=== PATIENT | female | born 1970 | race African-American/Black ===

== ENCOUNTER 2016-09-13 11:14 | Emergency (ER) | payer OTHER ==
[~2016-09-13] VITALS: Ht 157.5 cm; Wt 127.0 kg
[~2016-09-13 11:14] MED LIST: ALBMDI INH; ALBU2.5V7 INH; ASPI-862 PO; ATEN-41 PO; FLUO10CA65 PO; HYDR25TA4 PO; LISI10TA5 PO; PRED5TAB PO; PRO40 PO; WELSR100 PO
[2016-09-13 11:18] VITALS: BP 158/105; PULSE 103; RESP 24; TEMP 97.7; O2SAT 100
[2016-09-13] MEDS ORDERED: ONDANSETRON HCL 4 MG/2 ML VIAL IVP ONE (11:30)
[2016-09-13] MEDS ORDERED: KETOROLAC TROMETHAMINE 30 MG VIAL IVP ONE (11:30)
[2016-09-13] MEDS ORDERED: ASPIRIN 81 MG TAB.CHEW PO ONE (11:30)
[2016-09-13] MEDS ORDERED: MAG HYDROX/AL HYDROX/SIMETH 30 ML, BELLADONNA ALKALOIDS/PHENOBARB 10 ML, LIDOCAINE VISC... PO ONE ×3 (11:30)
[2016-09-13] MEDS ORDERED: ONDANSETRON HCL 4 MG/2 ML VIAL ONE (11:41)
[2016-09-13 11:47] LABS: BASOPHILS # (AUTO) 0.2 K/uL (0.0-0.2); BASOPHILS % (AUTO) 2.2 % (0.0-2.0); EOSINOPHILS % (AUTO) 0.5 % (0.0-4.0); HEMATOCRIT 30.8 % (36-48); HEMOGLOBIN 9.7 g/dL (12.0-16.0); LYMPHOCYTES % (AUTO) 23.5 % (20.5-51.5); MEAN CORPUSCULAR HEMOGLOBIN 21 pg (27-31); MEAN CORPUSCULAR HGB CONC 32 % (32-36); MEAN CORPUSCULAR VOLUME 68 fL (79.0-98.0); MONOCYTES # (AUTO) 0.4 K/uL (0.0-1.0); MONOCYTES % (AUTO) 5.1 % (1.7-9.3); NEUTROPHILS # (AUTO) 5.8 K/uL (1.8-7.7); NEUTROPHILS % (AUTO) 68.7 % (40.0-70.0); PLATELET COUNT (AUTO) 354 K/uL (130-430); RED BLOOD CELL COUNT(AUTO) 4.55 MIL/uL (4.2-6.2); RED CELL DISTRIBUTION WIDTH 19.5 % (9.0-15.0); WHITE BLOOD COUNT (AUTO) 8.4 K/uL (4.8-10.8)
[2016-09-13 11:57] LABS: CALCIUM 9.5 mg/dL (8.4-11.0); CREATININE 0.95 mg/dL (0.55-1.30); POTASSIUM 3.6 mmol/L (3.5-5.1)
[2016-09-13 12:00] LABS: PROTHROMBIN TIME 10.4 SECS (9.5-12.5)
[2016-09-13 12:01] LABS: ALBUMIN 3.4 g/dL (3.4-4.8); TOTAL BILIRUBIN 0.2 mg/dL (0.0-1.0); TOTAL PROTEIN, SERUM 8.5 g/dL (6.4-8.3)
[2016-09-13] MEDS ORDERED: MULT-1117 PO (14:06)
[2016-09-13] MEDS ORDERED: FERR-57 PO (14:06)
[2016-09-13] MEDS ORDERED: FURO-150 PO (14:06)
[2016-09-13] MEDS ORDERED: VALS80TA2 PO (14:06)
[2016-09-13] MEDS ORDERED: CHOL500052 PO (14:06)
[2016-09-13] MEDS ORDERED: BUPR-120 PO (14:06)
[2016-09-13] MEDS ORDERED: AMLO5TAB4 PO (14:06)
[2016-09-13] MEDS ORDERED: OMEG100T PO (14:06)
[2016-09-13] MEDS ORDERED: DEXA (14:06)
[2016-09-13] MEDS ORDERED: COG1 PO (14:06)
[2016-09-13] MEDS ORDERED: LURA60TA PO (14:06)
[2016-09-13 17:37] VITALS: BP 142/98; PULSE 100; RESP 24; TEMP 97.7; O2SAT 100
[2016-09-13 17:40] LABS: BILIRUBIN,URINE NEGATIVE (NEGATIVE); BLOOD, URINE NEGATIVE (NEGATIVE); CLARITY/URINE CLEAR (CLEAR); GLUCOSE,URINE NEGATIVE (NEGATIVE); KETONES,URINE NEGATIVE (NEGATIVE); LEUKOCYTE ESTERASE ,URINE NEGATIVE (NEGATIVE); NITRITE, URINE NEGATIVE (NEGATIVE); PROTEIN URINE NEGATIVE (NEGATIVE); UROBILINOGEN,URINE 0.2 (0.2-1.0)
[2016-09-13 17:42] LABS: COLOR,URINE STRAW (YELLOW)
== END 2016-09-13 17:37 | disposition left against medical advice (07) ==
LOC: SED 11:14
DX: K44.9 Diaphragmatic hernia without obstruction or gangrene (principal); K21.9 Gastro-esophageal reflux disease without esophagitis; R07.9 Chest pain, unspecified; J45.909 Unspecified asthma, uncomplicated; I10 Essential (primary) hypertension; E78.5 Hyperlipidemia, unspecified; Z88.0 Allergy status to penicillin; Z88.1 Allergy status to other antibiotic agents
CPT/HCPCS: 36415; 71010; 74176; 80053; 80061; 81003; 81025; 83690; 84484; 85025; 85610; 85730; 93005; 96374; 96375; 99285; J1885; J2001; J2405

== ENCOUNTER 2016-09-15 07:43 | Emergency (ER) | payer OTHER ==
[~2016-09-15] VITALS: Ht 157.5 cm; Wt 127.0 kg
[~2016-09-15 07:43] MED LIST changes: +AMLO5TAB4 PO; +BUPR-120 PO; +CHOL500052 PO; +COG1 PO; +DEXA; +FERR-57 PO; +FURO-150 PO; +LURA60TA PO; +MULT-1117 PO; +OMEG100T PO; +VALS80TA2 PO
[2016-09-15 07:50] VITALS: BP 163/113; PULSE 84; RESP 16; TEMP 97.5; O2SAT 100
--- NOTE | 2016-09-15 07:55 | NUR ---
Patient to ER bed 4 to gown for evaluation. Side rails up. Report given to Lebron DIAZ.
--- NOTE | 2016-09-15 08:00 | NUR ---
Pt presents to ED c/o mucus.Pt has no acute resp distress noted. Pt AAOx4, ambulated to room steady gait. Pt h/o HTN,GERD.
--- NOTE | 2016-09-15 08:10 | NUR ---
Patient transported to radiology via ambulation, accompanied by rad staff.
--- NOTE | 2016-09-15 08:15 | NUR ---
Pt returned from rad dept.Pt tolerated well.
--- NOTE | 2016-09-15 08:40 | NUR ---
at bedside for discussion of ACI
[2016-09-15 08:45] VITALS: BP 158/92; PULSE 86; RESP 16; TEMP 97.5; O2SAT 100
--- NOTE | 2016-09-15 08:45 | NUR ---
Patient given written and verbal discharge instructions and verbalizes understanding. ER MD discussed with patient the results and treatment provided. Given copies of tests performed in ER. Patient in stable condition. ID arm band removed. Rx of azithromycin,sudafed given. Patient educated on pain management and to follow up with PMD. Pain Scale 0. Opportunity for questions provided and answered.
== END 2016-09-15 08:45 | disposition home or self-care (01) ==
LOC: SED 07:43
DX: J20.9 Acute bronchitis, unspecified (principal); J45.909 Unspecified asthma, uncomplicated; K21.9 Gastro-esophageal reflux disease without esophagitis; I10 Essential (primary) hypertension; E66.9 Obesity, unspecified; E78.5 Hyperlipidemia, unspecified; Z88.0 Allergy status to penicillin; Z88.1 Allergy status to other antibiotic agents
CPT/HCPCS: 71020-TC; 99284

== ENCOUNTER 2016-09-28 12:26 | Emergency (ER) | payer OTHER ==
[~2016-09-28] VITALS: Ht 157.5 cm; Wt 129.7 kg
[2016-09-28 12:31] VITALS: BP 122/68; PULSE 62; RESP 20; TEMP 98.2; O2SAT 98
[2016-09-28] MEDS ORDERED: ASPIRIN 81 MG TAB.CHEW PO ONE (12:45)
[2016-09-28] MEDS ORDERED: KETOROLAC TROMETHAMINE 30 MG VIAL IVP ONE (12:45)
[2016-09-28] MEDS ORDERED: PROCHLORPERAZINE EDISYLATE 10 MG/2 ML VIAL IVP ONE (12:45)
[2016-09-28 13:12] LABS: BASOPHILS % (AUTO) 0.5 % (0.0-2.0); EOSINOPHILS # (AUTO) 0.1 K/uL (0.0-0.4); EOSINOPHILS % (AUTO) 1.5 % (0.0-4.0); HEMATOCRIT 32.1 % (36-48); HEMOGLOBIN 9.9 g/dL (12.0-16.0); LYMPHOCYTES # (AUTO) 2.2 K/uL (1.0-5.5); LYMPHOCYTES % (AUTO) 30.3 % (20.5-51.5); MEAN CORPUSCULAR HEMOGLOBIN 21 pg (27-31); MEAN CORPUSCULAR HGB CONC 31 % (32-36); MEAN CORPUSCULAR VOLUME 69 fL (79.0-98.0); MONOCYTES # (AUTO) 0.7 K/uL (0.0-1.0); NEUTROPHILS # (AUTO) 4.4 K/uL (1.8-7.7); NEUTROPHILS % (AUTO) 58.7 % (40.0-70.0); PLATELET COUNT (AUTO) 401 K/uL (130-430); RED BLOOD CELL COUNT(AUTO) 4.64 MIL/uL (4.2-6.2); RED CELL DISTRIBUTION WIDTH 18.7 % (9.0-15.0); WHITE BLOOD COUNT (AUTO) 7.4 K/uL (4.8-10.8)
[2016-09-28 13:16] LABS: CALCIUM 9.3 mg/dL (8.4-11.0); CREATININE 1.07 mg/dL (0.55-1.30); POTASSIUM 3.8 mmol/L (3.5-5.1)
[2016-09-28 13:20] LABS: PROTHROMBIN TIME 10.8 SECS (9.5-12.5)
[2016-09-28 13:27] LABS: ALBUMIN 3.2 g/dL (3.4-4.8); TOTAL BILIRUBIN 0.3 mg/dL (0.0-1.0); TOTAL PROTEIN, SERUM 8.1 g/dL (6.4-8.3)
[2016-09-28] MEDS ORDERED: NACL 0.9% 1,000 ML IV ONE (13:30)
[2016-09-28 15:38] LABS: BILIRUBIN,URINE NEGATIVE (NEGATIVE); BLOOD, URINE NEGATIVE (NEGATIVE); CLARITY/URINE CLEAR (CLEAR); COLOR,URINE YELLOW (YELLOW); GLUCOSE,URINE NEGATIVE (NEGATIVE); KETONES,URINE NEGATIVE (NEGATIVE); LEUKOCYTE ESTERASE ,URINE NEGATIVE (NEGATIVE); NITRITE, URINE NEGATIVE (NEGATIVE); PH,URINE 5.5 (5.0-8.0); PROTEIN URINE NEGATIVE (NEGATIVE); UROBILINOGEN,URINE 0.2 (0.2-1.0)
[2016-09-28 16:30] VITALS: BP 139/77; PULSE 88; RESP 14; TEMP 98.2; O2SAT 99
== END 2016-09-28 16:29 | disposition home or self-care (01) ==
LOC: SED 12:26
DX: E86.0 Dehydration (principal); D64.9 Anemia, unspecified; J45.909 Unspecified asthma, uncomplicated; K21.9 Gastro-esophageal reflux disease without esophagitis; I10 Essential (primary) hypertension; E78.5 Hyperlipidemia, unspecified; Z88.0 Allergy status to penicillin; Z88.1 Allergy status to other antibiotic agents
CPT/HCPCS: 36415; 71010; 80053; 81003; 82550; 84484; 85025; 85610; 85730; 93005; 96361; 96374; 99285; J0780; J7030; J1885

== ENCOUNTER 2016-11-24 19:45 | Emergency (ER) | payer OTHER ==
[~2016-11-24] VITALS: Ht 157.5 cm; Wt 127.0 kg
[2016-11-24 19:45] VITALS: BP 190/102; PULSE 85; RESP 20; TEMP 97.5; O2SAT 100
--- NOTE | 2016-11-24 20:22 | NUR ---
Patient to ER bed 1 to gown for evaluation. Side rails up. Report given to EMILY Hou.
--- NOTE | 2016-11-24 20:24 | NUR ---
Pt brought by self, A&Ox4, pt c/o sore throat and SOB x 2 days s/p endoscopy, skin pink and warm, cap refill <3, VSS, O2 100% room air, pt states unable to take medications due to dysphagia, respirations even and unlabored.
--- NOTE | 2016-11-24 21:14 | NUR ---
Dr Gastelum at bedside examining patient
[2016-11-24] MEDS ORDERED: MAG HYDROX/AL HYDROX/SIMETH 30 ML, BELLADONNA ALKALOIDS/PHENOBARB 10 ML, LIDOCAINE VISC... PO ONE ×3 (21:30)
[2016-11-24] MEDS ORDERED: KETOROLAC TROMETHAMINE 60 MG/2 ML VIAL IM ONE (21:30)
--- NOTE | 2016-11-24 21:45 | NUR ---
Pt on stable condition, denies SOB at this time, 02 100%
[2016-11-24 21:52] VITALS: BP 166/98; PULSE 85; RESP 20; TEMP 97.5; O2SAT 100
--- NOTE | 2016-11-24 21:55 | NUR ---
Patient given written and verbal discharge instructions and verbalizes understanding. ER MD discussed with patient the results and treatment provided. Patient in stable condition. ID arm band removed. Rx of Prednisone and Motrin given. Patient educated on pain management and to follow up with PMD. Pain Scale 0/10 . Opportunity for questions provided and answered.
== END 2016-11-24 21:52 | disposition home or self-care (01) ==
LOC: SED 19:45
DX: J02.9 Acute pharyngitis, unspecified (principal); J45.909 Unspecified asthma, uncomplicated; K21.9 Gastro-esophageal reflux disease without esophagitis; I10 Essential (primary) hypertension; E78.5 Hyperlipidemia, unspecified; Z88.1 Allergy status to other antibiotic agents; Z88.0 Allergy status to penicillin
CPT/HCPCS: 71010; 81025; 96372; 99283; J1885; J2001

== ENCOUNTER 2017-02-16 14:47 | Emergency (ER) | payer OTHER ==
[~2017-02-16] VITALS: Ht 160 cm; Wt 127.0 kg
[2017-02-16 14:47] VITALS: BP_SYST 147
[~2017-02-16 14:47] MED LIST changes: -ALBU2.5V7 INH; -ASPI-862 PO; -ATEN-41 PO; -FLUO10CA65 PO; -HYDR25TA4 PO; -LISI10TA5 PO; -PRED5TAB PO; -PRO40 PO; -WELSR100 PO
[2017-02-16] MEDS ORDERED: KETOROLAC TROMETHAMINE 60 MG/2 ML VIAL IM ONE (15:00)
[2017-02-16] MEDS ORDERED: ACETAMINOPHEN 325 MG TABLET PO ONE (15:00)
[2017-02-16 16:45] LABS: EOSINOPHILS # (AUTO) 0.1 K/uL (0.0-0.4); HEMOGLOBIN 10.7 g/dL (12.0-16.0); MEAN CORPUSCULAR HEMOGLOBIN 22 pg (27-31)
[2017-02-16 16:49] LABS: BASOPHILS % (AUTO) 0.5 % (0.0-2.0); EOSINOPHILS % (AUTO) 0.7 % (0.0-4.0); LYMPHOCYTES # (AUTO) 1.6 K/uL (1.0-5.5); LYMPHOCYTES % (AUTO) 17.4 % (20.5-51.5); MEAN CORPUSCULAR HGB CONC 31 % (32-36); MEAN CORPUSCULAR VOLUME 73 fL (79.0-98.0); MONOCYTES # (AUTO) 0.5 K/uL (0.0-1.0); MONOCYTES % (AUTO) 5.5 % (1.7-9.3); NEUTROPHILS % (AUTO) 75.9 % (40.0-70.0); PLATELET COUNT (AUTO) 437 K/uL (130-430); RED BLOOD CELL COUNT(AUTO) 4.82 MIL/uL (4.2-6.2); WHITE BLOOD COUNT (AUTO) 9.2 K/uL (4.8-10.8)
[2017-02-16 17:00] LABS: PROTHROMBIN TIME 10.4 SECS (9.5-12.5)
[2017-02-16 17:01] LABS: CALCIUM 9.2 mg/dL (8.4-11.0); CREATININE 0.95 mg/dL (0.55-1.30); POTASSIUM 4.4 mmol/L (3.5-5.1)
[2017-02-16 17:06] LABS: ALBUMIN 3.4 g/dL (3.4-4.8); TOTAL BILIRUBIN 0.2 mg/dL (0.0-1.0); TOTAL PROTEIN, SERUM 8.1 g/dL (6.4-8.3)
[2017-02-16 18:20] VITALS: BP_SYST 142
== END 2017-02-16 18:20 | disposition home or self-care (01) ==
LOC: SED 14:47
DX: M25.562 Pain in left knee (principal); M54.9 Dorsalgia, unspecified; R10.2 Pelvic and perineal pain; J45.909 Unspecified asthma, uncomplicated; R51 Headache; K21.9 Gastro-esophageal reflux disease without esophagitis; I10 Essential (primary) hypertension; E78.5 Hyperlipidemia, unspecified; Z88.0 Allergy status to penicillin; Z88.1 Allergy status to other antibiotic agents; Z79.899 Other long term (current) drug therapy
CPT/HCPCS: 29505; 36415; 70450; 71250; 72125; 72128; 72131; 73564; 74176; 80053; 81025; 85025; 85610; 85730; 96372; 99285; J1885

== ENCOUNTER 2017-05-25 09:07 | Emergency (ER) | payer OTHER ==
[~2017-05-25] VITALS: Ht 157.5 cm; Wt 123.4 kg
[2017-05-25 09:14] VITALS: BP_SYST 155
[2017-05-25 09:35] VITALS: BP_SYST 162
== END 2017-05-25 09:35 | disposition home or self-care (01) ==
LOC: SED 09:07
DX: T16.2XXA Foreign body in left ear, initial encounter (principal); I10 Essential (primary) hypertension; J45.909 Unspecified asthma, uncomplicated; K21.9 Gastro-esophageal reflux disease without esophagitis; E78.5 Hyperlipidemia, unspecified; Z88.0 Allergy status to penicillin; Z88.1 Allergy status to other antibiotic agents; Z79.899 Other long term (current) drug therapy; X58.XXXA Exposure to other specified factors, initial encounter; Y93.89 Activity, other specified; Y92.89 Other specified places as the place of occurrence of the external cause; Y99.8 Other external cause status
CPT/HCPCS: 99284

== ENCOUNTER 2017-06-22 00:42 | Emergency (ER) | payer OTHER ==
[~2017-06-22] VITALS: Ht 157.5 cm; Wt 123.4 kg
[2017-06-22] MEDS ORDERED: ONDANSETRON 4 MG ODT TAB PO ONE (00:45)
[2017-06-22 00:50] VITALS: BP_SYST 172
[2017-06-22 01:14] LABS: BILIRUBIN,URINE NEGATIVE (NEGATIVE); BLOOD, URINE 2+ (NEGATIVE); CLARITY/URINE CLEAR (CLEAR); COLOR,URINE YELLOW (YELLOW); GLUCOSE,URINE NEGATIVE (NEGATIVE); KETONES,URINE NEGATIVE (NEGATIVE); LEUKOCYTE ESTERASE ,URINE TRACE (NEGATIVE); NITRITE, URINE NEGATIVE (NEGATIVE); PROTEIN URINE NEGATIVE (NEGATIVE); UROBILINOGEN,URINE 0.2 (0.2-1.0)
[2017-06-22 01:28] LABS: BASOPHILS # (AUTO) 0.1 K/uL (0.0-0.2); BASOPHILS % (AUTO) 1.7 % (0.0-2.0); EOSINOPHILS # (AUTO) 0.1 K/uL (0.0-0.4); EOSINOPHILS % (AUTO) 1.5 % (0.0-4.0); HEMATOCRIT 31.6 % (36-48); HEMOGLOBIN 9.5 g/dL (12.0-16.0); LYMPHOCYTES # (AUTO) 1.9 K/uL (1.0-5.5); LYMPHOCYTES % (AUTO) 24.9 % (20.5-51.5); MEAN CORPUSCULAR HEMOGLOBIN 20 pg (27-31); MEAN CORPUSCULAR HGB CONC 30 % (32-36); MEAN CORPUSCULAR VOLUME 68 fL (79.0-98.0); MONOCYTES # (AUTO) 0.5 K/uL (0.0-1.0); MONOCYTES % (AUTO) 6.5 % (1.7-9.3); NEUTROPHILS # (AUTO) 4.9 K/uL (1.8-7.7); NEUTROPHILS % (AUTO) 65.4 % (40.0-70.0); PLATELET COUNT (AUTO) 452 K/uL (130-430); RED BLOOD CELL COUNT(AUTO) 4.65 MIL/uL (4.2-6.2); RED CELL DISTRIBUTION WIDTH 24.2 % (9.0-15.0); WHITE BLOOD COUNT (AUTO) 7.5 K/uL (4.8-10.8)
[2017-06-22] MEDS ORDERED: KETOROLAC TROMETHAMINE 30 MG VIAL IM ONE (01:30)
[2017-06-22 01:32] LABS: BACTERIA,URINE MODERATE /HPF (None Seen); MUCUS,URINE None Seen /LPF (None Seen); RBC,URINE 0-3 /HPF (0-3)
[2017-06-22 01:37] LABS: CALCIUM 8.7 mg/dL (8.4-11.0); CREATININE 0.84 mg/dL (0.55-1.30); POTASSIUM 3.9 mmol/L (3.5-5.1)
[2017-06-22 01:43] LABS: ALBUMIN 3.2 g/dL (3.4-4.8); TOTAL BILIRUBIN 0.3 mg/dL (0.0-1.0)
[2017-06-22 02:01] VITALS: BP_SYST 138
== END 2017-06-22 02:01 | disposition home or self-care (01) ==
LOC: SED 00:42
DX: K80.20 Calculus of gallbladder without cholecystitis without obstruction (principal); K21.9 Gastro-esophageal reflux disease without esophagitis; I10 Essential (primary) hypertension; J45.909 Unspecified asthma, uncomplicated; E78.5 Hyperlipidemia, unspecified; Z88.0 Allergy status to penicillin; Z88.1 Allergy status to other antibiotic agents; Z79.899 Other long term (current) drug therapy
CPT/HCPCS: 36415; 74176; 80053; 81000; 81025; 83690; 85025; 87086; 96372; 99285; J1885; Q0162

== ENCOUNTER 2017-09-01 17:18 | Emergency (ER) | payer OTHER ==
[~2017-09-01] VITALS: Ht 160 cm; Wt 120.7 kg
[2017-09-01 17:26] VITALS: BP_SYST 125
[2017-09-01 18:36] LABS: HEMATOCRIT 36.5 % (36-48); HEMOGLOBIN 11.2 g/dL (12.0-16.0); MEAN CORPUSCULAR HEMOGLOBIN 22 pg (27-31); MEAN CORPUSCULAR HGB CONC 31 % (32-36); MEAN CORPUSCULAR VOLUME 72 fL (79.0-98.0); PLATELET COUNT (AUTO) 472 K/uL (130-430); RED BLOOD CELL COUNT(AUTO) 5.07 MIL/uL (4.2-6.2); RED CELL DISTRIBUTION WIDTH 20.1 % (9.0-15.0)
[2017-09-01 18:54] LABS: ANION GAP 6 (5-15); CALCIUM 10.1 mg/dL (8.4-11.0); CHLORIDE 103 mmol/L (98-107); CREATININE 0.84 mg/dL (0.55-1.30); GLUCOSE 143 mg/dL (70-99); POTASSIUM 4.2 mmol/L (3.5-5.1); SODIUM SERUM 135 mmol/L (136-145); UREA NITROGEN, BLOOD 13 mg/dL (8-21)
[2017-09-01 18:55] LABS: GFR AFRICAN AMERICAN 94 mL/min (>90)
[2017-09-01 18:59] LABS: ALANINE AMINOTRANSFERASE 21 U/L (12-78); ALBUMIN 3.6 g/dL (3.4-4.8); ALCOHOL, BLOOD 4 mg/dL (<10); ASPARTATE AMINOTRANSFERASE 15 U/L (10-37); TOTAL BILIRUBIN 0.3 mg/dL (0.0-1.0)
[2017-09-01 19:02] LABS: ACETAMINOPHEN < 1 ug/mL (1-30)
[2017-09-01 19:21] LABS: BASOPHILS % (MANUAL) 0 % (0-2); EOSINOPHILS % (MANUAL) 1 % (0-7); LYMPHOCYTES % (MANUAL) 26 % (20-46); MONOCYTES % (MANUAL) 5 % (0-11)
[2017-09-01] MEDS ORDERED: LORazepam 1 MG TABLET PO ONE (20:15)
[2017-09-01 23:20] VITALS: BP_SYST 156
== END 2017-09-01 23:20 | disposition home or self-care (01) ==
LOC: SED 17:18
DX: F41.9 Anxiety disorder, unspecified (principal); J45.909 Unspecified asthma, uncomplicated; K21.9 Gastro-esophageal reflux disease without esophagitis; I10 Essential (primary) hypertension; E78.5 Hyperlipidemia, unspecified; F20.9 Schizophrenia, unspecified; Z88.0 Allergy status to penicillin; Z79.899 Other long term (current) drug therapy
CPT/HCPCS: 36415; 80053; 85007; 85027; 93005; 99285; G0480; G0481; G0482

== ENCOUNTER 2017-09-24 18:25 | Emergency (ER) | payer OTHER ==
[~2017-09-24] VITALS: Ht 160 cm; Wt 122.5 kg
[2017-09-24 18:38] VITALS: BP_SYST 158
[2017-09-24] MEDS ORDERED: QUEtiapine FUMARATE 25 MG TABLET PO ONE (19:15)
[2017-09-24 19:20] VITALS: BP_SYST 149
== END 2017-09-24 19:20 | disposition home or self-care (01) ==
LOC: SED 18:25
DX: F25.9 Schizoaffective disorder, unspecified (principal); I10 Essential (primary) hypertension; J45.909 Unspecified asthma, uncomplicated; K21.9 Gastro-esophageal reflux disease without esophagitis; E78.5 Hyperlipidemia, unspecified; Z88.0 Allergy status to penicillin; Z88.1 Allergy status to other antibiotic agents; Z79.899 Other long term (current) drug therapy
CPT/HCPCS: 99283

== ENCOUNTER 2017-10-13 15:51 | Emergency (ER) | payer OTHER ==
[~2017-10-13] VITALS: Ht 157.5 cm; Wt 119.7 kg
[2017-10-13 15:56] VITALS: BP_SYST 189
[2017-10-13] MEDS ORDERED: FAMOTIDINE 20 MG TABLET PO ONE (18:30)
[2017-10-13 20:41] VITALS: BP_SYST 142
== END 2017-10-13 20:41 | disposition home or self-care (01) ==
LOC: SED 15:51
DX: R13.10 Dysphagia, unspecified (principal); R05 Cough; M25.552 Pain in left hip; K21.9 Gastro-esophageal reflux disease without esophagitis; I10 Essential (primary) hypertension; J45.909 Unspecified asthma, uncomplicated; E78.5 Hyperlipidemia, unspecified; F20.9 Schizophrenia, unspecified; Z88.0 Allergy status to penicillin; Z88.1 Allergy status to other antibiotic agents; Z79.899 Other long term (current) drug therapy
CPT/HCPCS: 70360-TC; 99284

== ENCOUNTER 2018-02-16 07:54 | Emergency (ER) | payer OTHER ==
[~2018-02-16] VITALS: Ht 157.5 cm; Wt 117.9 kg
[2018-02-16 07:58] VITALS: BP_SYST 142
[2018-02-16] MEDS ORDERED: NACL 0.9% 1,000 ML IV ONE (08:29)
[2018-02-16] MEDS ORDERED: NITROGLYCERIN 1 INCH (GM) OINT. TP ONE (08:30)
[2018-02-16] MEDS ORDERED: ASPIRIN 81 MG TAB.CHEW PO ONE (08:30)
[2018-02-16] MEDS ORDERED: KETOROLAC TROMETHAMINE 15 MG VIAL IVP ONE (08:30)
[2018-02-16 08:35] LABS: HEMATOCRIT 38.1 % (36-48); MEAN CORPUSCULAR HEMOGLOBIN 24 pg (27-31); MEAN CORPUSCULAR HGB CONC 31 % (32-36); MEAN CORPUSCULAR VOLUME 76 fL (79.0-98.0); PLATELET COUNT (AUTO) 375 K/uL (130-430); RED BLOOD CELL COUNT(AUTO) 4.99 MIL/uL (4.2-6.2); RED CELL DISTRIBUTION WIDTH 19.9 % (9.0-15.0); WHITE BLOOD COUNT (AUTO) 6.8 K/uL (4.8-10.8)
[2018-02-16 08:41] LABS: HEMOGLOBIN 11.9 g/dL (12.0-16.0)
[2018-02-16 09:01] LABS: ATYPICAL LYMPHOCYTES % 0 % (0-0); BAND % (MANUAL) 0 % (0-6); BASOPHILS % (MANUAL) 2 % (0-2); EOSINOPHILS % (MANUAL) 6 % (0-7); LYMPHOCYTES % (MANUAL) 20 % (20-46); MONOCYTES % (MANUAL) 6 % (0-11)
[2018-02-16 09:26] LABS: ANION GAP 5 (5-15); CALCIUM 8.4 mg/dL (8.4-11.0); CHLORIDE 104 mmol/L (98-107); CREATININE 1.13 mg/dL (0.55-1.30); GLUCOSE 152 mg/dL (70-99); POTASSIUM 4.2 mmol/L (3.5-5.1); SODIUM SERUM 139 mmol/L (136-145); UREA NITROGEN, BLOOD 13 mg/dL (8-21)
[2018-02-16 09:30] LABS: INR 1.1 (0.8-1.2)
[2018-02-16 09:32] LABS: GFR AFRICAN AMERICAN 66 mL/min (>90)
[2018-02-16 09:35] LABS: ALANINE AMINOTRANSFERASE 20 U/L (12-78); ALBUMIN 2.8 g/dL (3.4-4.8); ASPARTATE AMINOTRANSFERASE 11 U/L (10-37); TOTAL BILIRUBIN 0.3 mg/dL (0.0-1.0)
[2018-02-16 10:08] VITALS: BP_SYST 122
== END 2018-02-16 10:08 | disposition home or self-care (01) ==
LOC: SED 07:54
DX: E86.0 Dehydration (principal); R07.89 Other chest pain; J45.909 Unspecified asthma, uncomplicated; K21.9 Gastro-esophageal reflux disease without esophagitis; I10 Essential (primary) hypertension; E78.5 Hyperlipidemia, unspecified; F20.9 Schizophrenia, unspecified; Z88.1 Allergy status to other antibiotic agents; Z88.0 Allergy status to penicillin; Z79.899 Other long term (current) drug therapy
CPT/HCPCS: 36415; 71045; 80053; 84484; 85007; 85027; 85379; 85610; 85730; 93005; 96361; 96374; 99285; J1885; J7030

== ENCOUNTER 2018-02-22 23:03 | Emergency (ER) | payer OTHER ==
[~2018-02-22] VITALS: Ht 157.5 cm; Wt 121.6 kg
[2018-02-22 23:15] VITALS: BP_SYST 151
[2018-02-23 00:15] VITALS: BP_SYST 145
== END 2018-02-23 00:15 | disposition home or self-care (01) ==
LOC: SED 23:03
DX: E11.9 Type 2 diabetes mellitus without complications (principal); E66.01 Morbid (severe) obesity due to excess calories; I10 Essential (primary) hypertension; K21.9 Gastro-esophageal reflux disease without esophagitis; J45.909 Unspecified asthma, uncomplicated; E78.5 Hyperlipidemia, unspecified; F20.9 Schizophrenia, unspecified; Z68.42 Body mass index [BMI] 45.0-49.9, adult; Z88.1 Allergy status to other antibiotic agents; Z88.0 Allergy status to penicillin; Z79.899 Other long term (current) drug therapy
CPT/HCPCS: 93005; 99283

== ENCOUNTER 2018-09-21 19:30 | Emergency (ER) | payer OTHER ==
[~2018-09-21] VITALS: Ht 157.5 cm; Wt 117.5 kg
[2018-09-21 19:55] VITALS: BP_SYST 160
[2018-09-21] MEDS ORDERED: GASTROGRAFIN 120 ML ONE (21:46)
[2018-09-21 21:50] LABS: HEMATOCRIT 41.1 % (36-48); HEMOGLOBIN 13.5 g/dL (12.0-16.0); MEAN CORPUSCULAR HEMOGLOBIN 28 pg (27-31); MEAN CORPUSCULAR VOLUME 85 fL (79.0-98.0); RED BLOOD CELL COUNT(AUTO) 4.85 MIL/uL (4.2-6.2); WHITE BLOOD COUNT (AUTO) 5.9 K/uL (4.8-10.8)
[2018-09-21 21:51] LABS: BASOPHILS % (AUTO) 1.1 % (0.0-2.0); EOSINOPHILS % (AUTO) 2.2 % (0.0-4.0); LYMPHOCYTES # (AUTO) 1.8 K/uL (1.0-5.5); LYMPHOCYTES % (AUTO) 30.2 % (20.5-51.5); MEAN CORPUSCULAR HGB CONC 33 % (32-36); MONOCYTES # (AUTO) 0.5 K/uL (0.0-1.0); MONOCYTES % (AUTO) 8.4 % (1.7-9.3); NEUTROPHILS # (AUTO) 3.4 K/uL (1.8-7.7); NEUTROPHILS % (AUTO) 58.1 % (40.0-70.0); PLATELET COUNT (AUTO) 262 K/uL (130-430); RED CELL DISTRIBUTION WIDTH 16.8 % (9.0-15.0)
[2018-09-21 21:52] LABS: BASOPHILS # (AUTO) 0.1 K/uL (0.0-0.2); EOSINOPHILS # (AUTO) 0.1 K/uL (0.0-0.4)
[2018-09-21 21:53] LABS: CALCIUM 9.1 mg/dL (8.4-11.0); CREATININE 0.95 mg/dL (0.55-1.30)
[2018-09-21 21:56] LABS: ALBUMIN 3.4 g/dL (3.4-4.8); TOTAL BILIRUBIN 0.3 mg/dL (0.0-1.0)
[2018-09-21 23:55] VITALS: BP_SYST 154
== END 2018-09-21 23:55 | disposition home or self-care (01) ==
LOC: SED 19:30
DX: R13.10 Dysphagia, unspecified (principal); J45.909 Unspecified asthma, uncomplicated; K21.9 Gastro-esophageal reflux disease without esophagitis; I10 Essential (primary) hypertension; E78.5 Hyperlipidemia, unspecified; F20.9 Schizophrenia, unspecified; Z88.0 Allergy status to penicillin; Z88.1 Allergy status to other antibiotic agents; Z79.899 Other long term (current) drug therapy
CPT/HCPCS: 36415; 74220; 80053; 85025; 99284; Q9963

== ENCOUNTER 2018-12-02 01:08 | Emergency (ER) | payer OTHER ==
[~2018-12-02] VITALS: Ht 157.5 cm; Wt 113.4 kg
--- NOTE | 2018-12-02 01:20 | NUR ---
Patient to ER bed 8 for evaluation.
[2018-12-02 01:25] VITALS: BP_SYST 149
--- NOTE | 2018-12-02 01:30 | NUR ---
Patient to ER via triage for evaluation of pain to surgical site s/p liposuction and tummy tuck on 11/01/18 in [facility]. Patient reports that she went back to doctor, but is still having pain despite taking pain medication. Patient is awake, alert and oriented in no acute distress, vital signs stable, respirations even and unlabored, skin warm and dry to touch. Patient is able to ambulate without difficulty with slow, steady gait to bed 8. Awaiting evaluation by ER MD, will continue to observe and assess.
--- NOTE | 2018-12-02 01:45 | NUR ---
ER at bedside examining patient.
[2018-12-02 02:30] VITALS: BP_SYST 140
--- NOTE | 2018-12-02 02:30 | NUR ---
Patient given written and verbal discharge instructions and verbalizes understanding. ER MD discussed with patient the results and treatment provided. Patient in stable condition. ID arm band removed. Rx of [place] given. Patient educated on pain management and to follow up with PMD. Pain Scale 0. Opportunity for questions provided and answered. Medication side effect fact sheet provided.
[2018-12-03] MEDS ORDERED: TELM80TA2 PO (15:58)
[2018-12-03] MEDS ORDERED: FAMO-132 PO (15:58)
[2018-12-03] MEDS ORDERED: FOLI-43 PO (15:58)
[2018-12-03] MEDS ORDERED: BENZ1TAB7 PO (15:58)
[2018-12-03] MEDS ORDERED: CARV25TA55 PO (15:58)
[2018-12-03] MEDS ORDERED: EMPA10TA PO (15:58)
[2018-12-03] MEDS ORDERED: LURA80TA PO (15:58)
[2018-12-03] MEDS ORDERED: ROSU20TA PO (15:58)
[2018-12-03] MEDS ORDERED: FER300L PO (15:58)
[2018-12-03] MEDS ORDERED: HYT1 PO (15:58)
[2018-12-03] MEDS ORDERED: BUPR300T55 PO (15:58)
== END 2018-12-02 02:30 | disposition home or self-care (01) ==
LOC: SED 01:08
DX: T81.49XA Infection following a procedure, other surgical site, initial encounter (principal); K21.9 Gastro-esophageal reflux disease without esophagitis; I10 Essential (primary) hypertension; J45.909 Unspecified asthma, uncomplicated; F20.9 Schizophrenia, unspecified; E78.5 Hyperlipidemia, unspecified; Z87.442 Personal history of urinary calculi; Z88.0 Allergy status to penicillin; Z88.1 Allergy status to other antibiotic agents; Z79.899 Other long term (current) drug therapy; Y83.8 Other surgical procedures as the cause of abnormal reaction of the patient, or of later complication, without mention of misadventure at the time of the procedure; Y92.89 Other specified places as the place of occurrence of the external cause
CPT/HCPCS: 99283

== ENCOUNTER 2018-12-03 14:44 | Inpatient (IN) | payer OTHER ==
[~2018-12-03] VITALS: Ht 157.5 cm; Wt 113.9 kg
[2018-12-03 14:59] VITALS: BP_SYST 162
--- NOTE | 2018-12-03 15:06 | NUR ---
Patient to ER bed 7 to gown for evaluation. Side rails up. Report given to ANTOINE DIAZ.
--- NOTE | 2018-12-03 15:10 | NUR ---
Patient to ER via triage for evaluation of post-op complications, patient reports that she was sent in by urgent care for further evaluation. Patient was seen in ER on 12/02/18 for wound check and was instructed at that time to follow up with surgeon/PMD for daily dressing changes. Patient is awake, alert and oriented in no acute distress, vital signs stable, respirations even and unlabored, skin warm and dry to touch. Patient able to ambulate without difficulty, with slow, steady gait to bed 7. Awaiting evaluation by ER MD, will continue to observe and assess.
--- NOTE | 2018-12-03 15:40 | NUR ---
ER at bedside examining patient.
[2018-12-03] MEDS ORDERED: cefTRIAXone 1 GM in D5W 50 ML IV ONE (15:45)
[2018-12-03] MEDS ORDERED: cefTRIAXone 1 GM VIAL ONE (15:55)
[2018-12-03] MEDS ORDERED: BENZ1TAB7 PO (15:58)
[2018-12-03] MEDS ORDERED: FOLI-43 PO (15:58)
[2018-12-03] MEDS ORDERED: ROSU20TA PO (15:58)
[2018-12-03] MEDS ORDERED: TELM80TA2 PO (15:58)
[2018-12-03] MEDS ORDERED: HYT1 PO (15:58)
[2018-12-03] MEDS ORDERED: EMPA10TA PO (15:58)
[2018-12-03] MEDS ORDERED: FER300L PO (15:58)
[2018-12-03] MEDS ORDERED: BUPR300T55 PO (15:58)
[2018-12-03] MEDS ORDERED: LURA80TA PO (15:58)
[2018-12-03] MEDS ORDERED: CARV25TA55 PO (15:58)
[2018-12-03] MEDS ORDERED: FAMO-132 PO (15:58)
--- NOTE | 2018-12-03 16:00 | NUR ---
Medication reconciliation completed with information provided by patient. Any prior medication reconciliation on file was reviewed and corrected.
[2018-12-03 16:20] LABS: BASOPHILS % (AUTO) 0.9 % (0.0-2.0); EOSINOPHILS # (AUTO) 0.2 K/uL (0.0-0.4); EOSINOPHILS % (AUTO) 4.4 % (0.0-4.0); HEMOGLOBIN 11.5 g/dL (12.0-16.0); LYMPHOCYTES # (AUTO) 1.4 K/uL (1.0-5.5); MEAN CORPUSCULAR HEMOGLOBIN 28 pg (27-31); MEAN CORPUSCULAR HGB CONC 32 % (32-36); MEAN CORPUSCULAR VOLUME 86 fL (79.0-98.0); MONOCYTES # (AUTO) 0.5 K/uL (0.0-1.0); MONOCYTES % (AUTO) 9.1 % (1.7-9.3); NEUTROPHILS # (AUTO) 3.3 K/uL (1.8-7.7); NEUTROPHILS % (AUTO) 59.6 % (40.0-70.0); PLATELET COUNT (AUTO) 302 K/uL (130-430); RED BLOOD CELL COUNT(AUTO) 4.19 MIL/uL (4.2-6.2); RED CELL DISTRIBUTION WIDTH 16.3 % (9.0-15.0); WHITE BLOOD COUNT (AUTO) 5.5 K/uL (4.8-10.8)
[2018-12-03 16:33] LABS: CALCIUM 9.1 mg/dL (8.4-11.0); POTASSIUM 4.2 mmol/L (3.5-5.1)
[2018-12-03 16:34] LABS: INR 1.1 (0.8-1.2); PROTHROMBIN TIME 11.3 SECS (9.5-12.5)
[2018-12-03 16:37] LABS: ALBUMIN 3.2 g/dL (3.4-4.8); TOTAL BILIRUBIN 0.5 mg/dL (0.0-1.0)
--- NOTE | 2018-12-03 17:00 | NUR ---
Patient resting quietly in no acute distress, awaiting dispo. No adverse reaction noted to medication.
[2018-12-03] MEDS ORDERED: MORPHINE 4 MG/ML INJ. SYRINGE IVP ONE (17:45)
[2018-12-03] MEDS ORDERED: DIPHENHYDRAMINE INJ 50 MG/ML VIAL IVP ONE (17:45)
--- NOTE | 2018-12-03 18:00 | NUR ---
Patient will be admitted to care of Dr Beckham. Admitted to MS unit. Will go to room 122-B. Belongings list completed. Summary report printed. Report will be given at bedside.
--- NOTE | 2018-12-03 18:08 | NUR ---
Transfer to [facility] / [facility]. IV present no sign or symptom of infiltration.
[2018-12-03 18:31] LABS: BILIRUBIN,URINE NEGATIVE (NEGATIVE); BLOOD, URINE NEGATIVE (NEGATIVE); CLARITY/URINE CLEAR (CLEAR); COLOR,URINE YELLOW (YELLOW); GLUCOSE,URINE 3+ (NEGATIVE); KETONES,URINE NEGATIVE (NEGATIVE); LEUKOCYTE ESTERASE ,URINE NEGATIVE (NEGATIVE); NITRITE, URINE NEGATIVE (NEGATIVE); PROTEIN URINE NEGATIVE (NEGATIVE); UROBILINOGEN,URINE 0.2 (0.2-1.0)
[2018-12-03 18:37] LABS: BACTERIA,URINE RARE /HPF (None Seen); RBC,URINE 0-3 /HPF (0-3); WBC,URINE 0-3 /HPF (0-3)
[2018-12-03] MEDS ORDERED: ACETAMINOPHEN 325 MG TABLET PO PRN (19:00)
[2018-12-03] MEDS ORDERED: cloNIDine HCL 0.1 MG TABLET PO PRN (19:00)
--- NOTE | 2018-12-03 19:02 | NUR ---
CONSULTATION PAGED/CALLED Reason for Consultation: INFECTED SURGICAL WOUND Person Who was Notified: ANGELO Consulting Physician: DR. LOTT Organic Chemistry Teacher Specialty: SX Ordering Physician: DR. COLLADO
--- NOTE | 2018-12-03 19:04 | NUR ---
CONSULTATION PAGED/CALLED Reason for Consultation: INFECTED SURGICAL WOUND Person Who was Notified: MAMIE Consulting Physician: DR. FLORES Grip Assembler Specialty: ID Ordering Physician: DR. COLLADO
--- NOTE | 2018-12-03 19:18 | NUR ---
ADMIT NOTE Received pt from ER to the floor with a diagnosis of infected surgical wound. Admission process initiated. patient oriented to pain management, safety and call light-teach back done.
[2018-12-03 19:25] VITALS: BP_SYST 177
[2018-12-03 20:00] VITALS: BP_SYST 148
[2018-12-03] MEDS ORDERED: VANCOMYCIN HCL 1,000 MG in NS 250 ML IV ONE (20:00)
[2018-12-03] MEDS ORDERED: VANCOMYCIN HCL 1000 MG/VIAL IV ONE (20:54)
[2018-12-03] MEDS: ATORVASTATIN 20 MG TABLET PO SCH (21:00)
--- NOTE | 2018-12-03 21:00 | NUR ---
CONSULTATION PAGED/CALLED Reason for Consultation: INFECTED SURGICAL WOUND Person Who was Notified: MAMIE Consulting Physician: DR. WINN; DR. PEÑA COVERING Noteman Specialty: SX Ordering Physician: DR. COLLADO
--- NOTE | 2018-12-03 21:03 | NUR ---
PAGED PAGING KILN LOADER PHYSICIAN; DR. COLLADO, SPOKE WITH SARA.
[2018-12-03] MEDS ORDERED: MORPHINE 4 MG/ML INJ. SYRINGE IVP PRN (22:15)
[2018-12-04] MEDS: IBUPROFEN 800 MG TABLET PO PRN ×2 (01:35→15:09)
[2018-12-04] MEDS: D5NS 1,000 ML IV SCH ×2 (01:37→07:20)
[2018-12-04 01:39] VITALS: BP_SYST 159
[2018-12-04] MEDS: FAMOTIDINE 20 MG TABLET PO SCH ×3 (01:39→21:47)
[2018-12-04] MEDS: CARVEDILOL 25 MG TABLET (COREG) PO SCH ×3 (01:39→17:27)
[2018-12-04] MEDS: FERROUS SULFATE 300 MG/5 ML UDC PO SCH ×3 (01:39→17:26)
[2018-12-04] MEDS: TERAZOSIN HCL 5 MG CAPSULE (HYTRIN) PO SCH ×2 (01:40→21:47)
--- NOTE | 2018-12-04 06:45 | NUR ---
pt.received via the er-dept.pt.presents abdomen wound;dehiscensed.pt.is s/p liposuction x1 month.[place]. is ordered consult;surgery.;initial drMaggieconsult;surgery;unavailable.pt.presents diabetic hx. pt.presents device;assess blood glucose; ordered pt.may utilized blood glucose monitor/viola;rachel. has applied the dsc base;location;lt.bicept.monitor passed over disc base to provided blood glucose values; 128mg/dl initial values.pt.presented pain.i had administered morphine;2mg ivp.pt.presents w/home medications; family to take home.i have initiate the administered of the maintanance iv fluids.i have administered vancomycin ivpb; initial dose.pt.stated she had thang prescribed cipro;500mg po bid;initial administration;thursday:11/30/18, to clarify w/md.in am.pt.capable to reposition self.pt.has been provided snacks/beverages w/in the shift.call light/ telephone placed w/in the reach of the pt.i have assessed the abdomen wound.i have cleansed the wound.i have changed the dsg.
[2018-12-04 08:00] VITALS: BP_SYST 127
--- NOTE | 2018-12-04 08:00 | NUR ---
Opening Note Report received from [facility] shift nurse. Patient is currently awake and resting in bed. Abdominal incision is currently covered with an occlusive dressing. No drainage noted on the dressing. Wounds cx results are pending. Iv is on the RFA 22g running D51/2Ns@75. NO c/o pain at the moment. Will continue to monitor.
[2018-12-04] MEDS: LOSARTAN POTASSIUM 50 MG TABLET (COZAAR) PO SCH (08:49)
[2018-12-04] MEDS: buPROPion HCL 150 MG XL TAB PO SCH (08:50)
[2018-12-04] MEDS: FOLIC ACID 1 MG TABLET PO SCH (08:50)
--- NOTE | 2018-12-04 10:20 | NUR ---
Rounds Patient is resting in bed. Call light is within reach,
--- NOTE | 2018-12-04 11:20 | NUR ---
Case Mgt: Rec'd call from Stefanie child welfare caseworker Jet [phone] requesting H&P, meds to be faxed to her at [phone]--info being faxed now. ELVIRA DIAZ
--- NOTE | 2018-12-04 12:32 | NUR ---
MD Rounds Dr. Cabral rounded on the patient. Orders received.
[2018-12-04 12:47] VITALS: BP_SYST 156
[2018-12-04] MEDS ORDERED: LINEZOLID 300 ML IV ONE (13:00)
[2018-12-04] MEDS ORDERED: LORA-259 PO (13:03)
[2018-12-04] MEDS ORDERED: HYDR-4274 PO (13:03)
[2018-12-04] MEDS ORDERED: CIPR-211 PO (13:03)
--- NOTE | 2018-12-04 14:47 | NUR ---
MD Rounds Dr. Beckham rounded on the patient. Orders received.
[2018-12-04] MEDS ORDERED: cefTRIAXone 1 GM in D5W 50 ML IV SCH (16:00)
--- NOTE | 2018-12-04 16:37 | NUR ---
Rounds Patient is currently resting in bed. No c/o pain at the moment. Call light is within reach.
[2018-12-04] MEDS: cefTRIAXone 1 GM in D5W 50 ML IV SCH (17:26)
[2018-12-04 17:39] VITALS: BP_SYST 152
--- NOTE | 2018-12-04 18:22 | NUR ---
Closing Note patient is currently eating dinner in bed. Abd dressing is in place, no drainage noted on the dressing. IV is on the RFA 22g running D51/2NS@tko. Surgical consult with Dr. Hope is pending. Call light is within reach and bed is in low position. Will endorse care to the oncoming nurse.
--- NOTE | 2018-12-04 19:15 | NUR ---
CHANGE OF SHIFT; pt. awake, alert ,oriented on high fowlers position. IV infusing on rt. forearm . moves all extremities.safety measures observed. call light within reach.
--- NOTE | 2018-12-04 20:00 | NUR ---
NOTES: pt. wants medications for constipation, vit. c, pain med and crestor, informed pt. that MD needs to be call, asked office mail clerk to paged MD. pt. awake, alert and oriented. moves al extremities. on room air, no shortness of breath. IVF tko via rt. forearm with D5 1/2 NS. abdominal dressing intact, waiting for Dr. Hope for surgical consult. pt. needs attended. call light within reach.
[2018-12-04 20:15] VITALS: BP_SYST 153
--- NOTE | 2018-12-04 20:15 | NUR ---
PAGED: Paged Dr. Beckham
--- NOTE | 2018-12-04 20:46 | NUR ---
PAGED: SECOND PAGE FOR DR. COLLADO SPOKE WITH DANILO
[2018-12-04] MEDS ORDERED: ROSUVASTATIN CALCIUM 5 MG/TAB (CRESTOR) PO SCH (21:00)
[2018-12-04] MEDS: ATORVASTATIN 20 MG TABLET PO SCH (21:00)
[2018-12-04] MEDS ORDERED: LINEZOLID 300 ML IV SCH (21:00)
[2018-12-04] MEDS ORDERED: ASCORBIC ACID 500 MG TABLET PO SCH ×2 (21:00→22:00)
[2018-12-04] MEDS ORDERED: DOCUSATE SODIUM 100 MG CAPSULE PO SCH ×2 (21:00→22:00)
--- NOTE | 2018-12-04 21:00 | NUR ---
NOTES: Dr. Beckham called back after 2nd call and informed him about medications needed and orders taken, needs to be verified by pharmacy.
[2018-12-04] MEDS: HYDROcodone/ACETAMIN 5-325 MG TAB (NORCO/ VICODIN) PO PRN (21:51)
--- NOTE | 2018-12-04 22:00 | NUR ---
NOTES: pt. medicated with [place] for c/o post surgical wound. repositioned self for comfort.
[2018-12-04] MEDS ORDERED: BISACODYL 5 MG TABLET.DR (DULCOLAX) PO PRN (23:00)
--- NOTE | 2018-12-04 23:30 | NUR ---
NOTES: abdominal dressing changed per pt. request. noted surgical incision open with some serous drainage. called Dr. Hope's exchange but no return call.
--- NOTE | 2018-12-05 | NUR ---
NOTES: pt. sleeping when checked, easily awakened.
--- NOTE | 2018-12-05 01:15 | NUR ---
NOTES: IV site infiltrated, pt. hurting when IV antibiotic started, reinserted on rt. arm by nurse Lacey and resume IV antibiotic.
[2018-12-05 01:23] VITALS: BP_SYST 150
[2018-12-05] MEDS: LINEZOLID 300 ML IV SCH ×2 (01:25→13:23)
--- NOTE | 2018-12-05 03:20 | NUR ---
NOTES: pt. asleep, continue to monitor.
--- NOTE | 2018-12-05 05:25 | NUR ---
NOTES: IV kept infusing TKO, condition unchanged. been sleeping at long intervals.
--- NOTE | 2018-12-05 06:30 | NUR ---
CLOSING NOTES; pt. sleeping, IV patent and infusing TKO. no complaints noted. abdominal dressing intact. for further care and observation, still waiting for Dr. Hope to see her.
[2018-12-05] MEDS: D5NS 1,000 ML IV SCH (06:46)
--- NOTE | 2018-12-05 07:30 | NUR ---
endorsed to incoming shift with nurse Maloney.
[2018-12-05 08:00] VITALS: BP_SYST 128
--- NOTE | 2018-12-05 08:00 | NUR ---
RN OPENING NOTE PATIENT IS RESTING ON BED, ALERT ORIENTED X4, PATIENT WAS ASSESSED, VITAL SIGNS ARE STABLE. PATIENT DENIES PAIN OR DISCOMFORT. PATIENT'S BED AT LOW POSITION AND CALL LIGHT WITHIN REACH, WILL PASS MED AT 0900
[2018-12-05] MEDS: FERROUS SULFATE 300 MG/5 ML UDC PO SCH ×2 (09:21→17:48)
[2018-12-05] MEDS: DOCUSATE SODIUM 100 MG CAPSULE PO SCH (09:21)
[2018-12-05] MEDS: ASCORBIC ACID 500 MG TABLET PO SCH (09:22)
[2018-12-05] MEDS: FAMOTIDINE 20 MG TABLET PO SCH ×2 (09:22→20:12)
[2018-12-05] MEDS: FOLIC ACID 1 MG TABLET PO SCH (09:22)
[2018-12-05] MEDS: buPROPion HCL 150 MG XL TAB PO SCH (09:22)
[2018-12-05] MEDS: CARVEDILOL 25 MG TABLET (COREG) PO SCH ×2 (09:23→17:51)
[2018-12-05] MEDS: LOSARTAN POTASSIUM 50 MG TABLET (COZAAR) PO SCH (09:23)
--- NOTE | 2018-12-05 09:30 | NUR ---
'S CONSULT SPOKE TO DR TAPIA AND MADE AWARE OF CONSULT. HE SAID HE WAS OUT OF TOWN AND SUPPOSED TO COME BACK YESTERDAY MORNING BUT HIS FLIGHT GOT DELAYED AND WENT HOME FROM THE AIRPORT AT 11PM. HE WILL COME TO SEE PT TODAY AND ORDERED WOUND CARE CONSULT.
--- NOTE | 2018-12-05 10:00 | NUR ---
RN NOTE PATIENT HAS BEEN SEEN BY HEAVEN SANDOVAL. EXPLAINED TO THE PATIENT HER CONDITION, PATIENT VERBALIZED UNDERSTANDING, PATIENT DENIES PAIN OR DISCOMFORT. AWAITING THE SURGEON TO CHECK THE PATIENT. WILL CONTINUE TO MONITOR.
--- NOTE | 2018-12-05 10:30 | NUR ---
Nutrition Update Familia Scale 18 noted. Pt admitted for infected surgical wound. Diet: [facility] [place] BMI: 46.1 kg/m2 RD to follow per nutrition care standards.
[2018-12-05 12:00] VITALS: BP_SYST 144
--- NOTE | 2018-12-05 12:00 | NUR ---
RN NOTE PATIENT IS RESTING IN BED, DENIES PAIN OR DISCOMFORT. PATIENT'S DRESSING ON HER WOUND WAS CHANGED WITH NEW DRESSING. PATIENT WAS THEN SERVED HER LUNCH, WILL CONTINUE TO MONITOR.
--- NOTE | 2018-12-05 13:43 | NUR ---
Dietitian Recommendations * [facility] w/ [place] BID (wound healing supplement provides an additional 190 kcal/day and 5 gm protein/day) LP, RD Please refer to Nutrition Assessment for details.
--- NOTE | 2018-12-05 14:00 | NUR ---
RN NOTE PATIENT IS SITTING IN HER BED, WAS AMBULATED TO THE BATH ROOM,, WILL CONTINUE TO MONITOR.
[2018-12-05] MEDS: IBUPROFEN 800 MG TABLET PO PRN (14:35)
[2018-12-05 16:00] VITALS: BP_SYST 150
--- NOTE | 2018-12-05 16:00 | NUR ---
RN NOTE DR. COX THE SURGEON TALKED TO THE PATIENT ABOUT DOING DEBRIDEMENT OF HER WOUND, HE EXPLAINED TO HER THE RISK AND BENEFIT. PATIENT AGREED. WILL BRING THE CONSENT TO THE PATIENT AND WILL FOLLOW UP.
[2018-12-05] MEDS: cefTRIAXone 1 GM in D5W 50 ML IV SCH (17:49)
--- NOTE | 2018-12-05 18:36 | NUR ---
RN CLOSING NOTE PATIENT IS RESTING IN BED, WAS SERVED HER DINNER, PATIENT WOUND DRESSING WAS REINFORCED, PATIENT WAS GIVEN HER MEDICATIONS AND SIGN ON THE CONSENT FOR HER WOUND DEBRIDEMENT, WILL ENDORSE TO NEXT SHIFT.
--- NOTE | 2018-12-05 19:15 | NUR ---
CHANGE OF SHIFT; pt. awake, alert and oriented, on high fowlers position, with visitor at bedside. IVF tko on rt. forearm. denies any discomfort. call light within reach.
[2018-12-05 20:15] VITALS: BP_SYST 157
--- NOTE | 2018-12-05 20:15 | NUR ---
NOTES: due meds given. IV tko via rt. forearm. on room air, no shortness of breath. moves all extremities well. abdominal dressing intact. pt. sign consent for schedule debridement tomorrow. call light within reach.
[2018-12-05] MEDS: TERAZOSIN HCL 5 MG CAPSULE (HYTRIN) PO SCH (20:17)
[2018-12-05] MEDS: ATORVASTATIN 20 MG TABLET PO SCH (20:17)
--- NOTE | 2018-12-05 21:00 | NUR ---
NOTES: pt. been ambulating to the restroom, request for toiletries and provided.
[2018-12-05] MEDS: HYDROcodone/ACETAMIN 5-325 MG TAB (NORCO/ VICODIN) PO PRN (22:02)
--- NOTE | 2018-12-05 22:05 | NUR ---
NOTES: pt. medicated with [place] for c/o post op surgical incision/abdominal wound. pt. reminded to be NPO after midnight for surgery schedule tomorrow and verbalized understanding.
--- NOTE | 2018-12-06 | NUR ---
NOTES: abdominal dressing changed per pt. request, dry dressing applied, note some yellowish drainage. kept NPO already,took away all her oral fluids. IVF tko.
[2018-12-06] MEDS: LINEZOLID 300 ML IV SCH ×2 (00:14→17:39)
[2018-12-06 00:25] VITALS: BP_SYST 144
--- NOTE | 2018-12-06 02:30 | NUR ---
NOTES: pt. sleeping on and off at intervals, easily awakened. condition unchanged.
--- NOTE | 2018-12-06 04:23 | NUR ---
NOTES: pt. remain sleeping. continue to monitor.
--- NOTE | 2018-12-06 05:44 | NUR ---
NOTES: pt. called and have concern on the procedure about possible wound vac, verbalizing she does not want the wound vac, just want to let it drain and antibiotic, informed pt. to address this am , will endorse to day shift to call Dr. Hope about it, procedure schedule after lunch, pt. wants to talk to charge nurse Ana and made her aware. preop checklist initiated.
--- NOTE | 2018-12-06 06:45 | NUR ---
CLOSING NOTES; pt. remains awake, anxious for the procedure today. kept NPO, IVF patent. for further care and assistance. call light within reach.
--- NOTE | 2018-12-06 08:00 | NUR ---
OPENING NOTES patient received resting in bed A&O x4, patient denies any acute distress, breathing is even and unlabored on room air, patient NPO status remains for procedure later, educated patient on plan of care and call light system, will continue to monitor, safety precautions in place, call light within reach.
[2018-12-06 08:01] VITALS: BP_SYST 140
[2018-12-06] MEDS: FERROUS SULFATE 300 MG/5 ML UDC PO SCH ×2 (08:30→18:06)
[2018-12-06] MEDS: CARVEDILOL 25 MG TABLET (COREG) PO SCH ×2 (08:48→18:07)
[2018-12-06] MEDS: FOLIC ACID 1 MG TABLET PO SCH (08:49)
[2018-12-06] MEDS: FAMOTIDINE 20 MG TABLET PO SCH ×2 (08:49→21:21)
[2018-12-06] MEDS: LOSARTAN POTASSIUM 50 MG TABLET (COZAAR) PO SCH (08:49)
[2018-12-06] MEDS: ASCORBIC ACID 500 MG TABLET PO SCH (08:49)
[2018-12-06] MEDS: DOCUSATE SODIUM 100 MG CAPSULE PO SCH (08:49)
[2018-12-06] MEDS: buPROPion HCL 150 MG XL TAB PO SCH (08:50)
--- NOTE | 2018-12-06 10:00 | NUR ---
WOUND EVALUATION: Wound Consult received from Dr. Hope. Thank you, Dr. Hope, for the consult. Patient received in a Viktoria Bed with an IsoFlex SULEMA mattress, awake, alert, oriented. Patient is able to turn in bed independently. Familia Score is an 18. Past Medical History: Asthma, Gastroesophageal Reflux Disease, Hypertension, borderline Diabetes Mellitus, Morbid Obesity, history of Gallstones, Hyperlipidemia, Schizophrenia. Admitted for infected plastic surgical wound in the lower abdomen. On 11/01/2018, patient went to [facility] and had a surgical resection of her pannus at a hospital there with a tummy tuck and stayed there for five days. 11/13/2018 back at home, the patient noticed that her wound was dehiscing. She went back to [place] and was kept there for another 20 days and was just released back home. When the patient looked again, she noticed that the wound was still open and there was some redness and a significant amount of drainage. [place] then [place] further medical [place] Recent Labs: WBC 5.5, RBC 4.19, hemoglobin 11.5, hematocrit 36.0, GFR 76, albumin 3.2. Microbiology: Blood culture results 2 in progress. Abdominal wound culture results in progress. MRSA screen results negative. Intrinsic factors that delay wound healing: Hypoalbuminemia. Extrinsic factors that delay wound healing: Decreased mobility. EMILY Bui, present throughout assessment and wound care. Wound Assessment: 1. Lower Abdomen: Dehisced surgical incision, present on admission. Incision is mostly approximated bilaterally but dehisced in the center. No odor, no drainage presently, small yellow purulent drainage on dressing upon removal. Lora-wound intact. Visible dehisced portion of wound was 80% pink tissue, 20% yellow tissue. Entire incision measures 1.0 cm x 37.3 cm. Patient refused measurement of depth of wound, and further measurements (she fearful of pain, even though she received pain medication prior to the assessment). Recommend: Cleanse wound with normal saline. Apply sure prep to lora-wound. Apply hydrogel to wound bed and outer dehisced portion of wound. Cover with Xeroform dressing, then ABD pad. Secure with paper tape. Perform wound care daily, and as needed for dressing soiling or dislodgement. Also recommend: Encourage and assist patient as needed with repositioning every 2 hours with pillow support, and off-load pressure areas with pillows for pressure re-distribution. Offload, elevate and float bilateral heels with pillows. Perform skin care and monitor skin integrity Q shift. Patient is scheduled for surgical debridement and possible wound VAC placement today. Addendum: 12/06/18 at 1826 by Arian Rodriguez RN Update, post-op treatment should be as follows: Recommend: Keep Prevena Wound Vac in place, will be d/c'd on 7th day. No dressing changes needed. Check VAC dressing every shift. Leave Vac on if patient is discharged before the 7th day.
--- NOTE | 2018-12-06 10:05 | NUR ---
NOTES wound care assessment and dressing care change performed by wound care nurse and RN, patient tolerated well, patient denies any acute distress or pain, breathing is even and unlabored on room air, will continue to monitor, safety precautions in place, call light within reach.
--- NOTE | 2018-12-06 12:14 | NUR ---
NOTES patient is resting in bed watching tv, patient denies any acute distress or pain at this time, NPO status remains, breathing is even and unlabored on room air, will continue to monitor, safety precautions in place, call light within reach.
[2018-12-06 12:20] VITALS: BP_SYST 136
--- NOTE | 2018-12-06 13:30 | NUR ---
ATTEMPTED TO HANG IV ZYVOX PATIENT STATED SHE DOES NOT WANT ANTIBIOTICS UNTIL AFTER SHE COMES BACK FROM SURGERY AND EATS.
--- NOTE | 2018-12-06 14:33 | NUR ---
PATIENT IS OFF THE FLOOR for procedure at this time.
[2018-12-06] MEDS ORDERED: NS IRRIG SOLN 1000 ML IR ONE (15:25)
[2018-12-06] MEDS ORDERED: fentaNYL CITRATE 250 MCG/5 ML AMP ONE (15:25)
[2018-12-06] MEDS ORDERED: ONDANSETRON HCL 4 MG/2 ML VIAL ONE (15:25)
[2018-12-06] MEDS ORDERED: DEXAMETHASONE SOD PHOSPHATE 4 MG/ML VIAL ONE (15:25)
[2018-12-06] MEDS ORDERED: SEVOFLURANE 15 MIN GAS INH ONE (15:25)
[2018-12-06] MEDS ORDERED: MIDAZOLAM HCL 5 MG/ML VIAL (VERSED) IV ONE (15:25)
[2018-12-06] MEDS ORDERED: LR 1,000 ML IV.SOLN IV ONE (15:25)
[2018-12-06] MEDS ORDERED: BUPIVACAINE /EPINEPHRINE/PF 0.25% 30 ML VIAL INJ ONE (15:25)
[2018-12-06] MEDS ORDERED: KETOROLAC TROMETHAMINE 30 MG VIAL ONE (15:25)
[2018-12-06] MEDS ORDERED: ROCURONIUM BROMIDE 10 MG/ML (ZEMURON) ONE (15:25)
[2018-12-06] MEDS ORDERED: PROPOFOL 200MG/ 20ML VIAL (DIPRIVAN) IV ONE (15:25)
[2018-12-06] MEDS ORDERED: HYDROcodone/ACETAMIN 5-325 MG TAB (NORCO/ VICODIN) PO PRN (16:45)
[2018-12-06] MEDS ORDERED: HYDROmorphone 1 MG INJ. 1 MG/ML AMPUL IVP ONE (17:00)
[2018-12-06] MEDS ORDERED: ATROPINE SULFATE 0.4 MG/ML VIAL IVP ONE (17:00)
[2018-12-06] MEDS ORDERED: HYDROmorphone 1 MG INJ. 1 MG/ML AMPUL ONE (17:04)
[2018-12-06] MEDS: HYDROmorphone 1 MG INJ. 1 MG/ML AMPUL IVP PRN ×2 (17:05→21:25)
[2018-12-06 17:30] VITALS: BP_SYST 131
--- NOTE | 2018-12-06 17:30 | NUR ---
PATIENT BACK FROM PROCEDURE patient now resting in bed, pain is controlled at this time, breathing is even and unlabored, no acute distress or pain is noted, IVF infusing as ordered, educated patient on plan of care and call light system, wound vac in place, will continue to monitor, safety precautions in place, call light within reach.
[2018-12-06] MEDS: NACL 0.9% 1,000 ML IV SCH (17:39)
--- NOTE | 2018-12-06 19:08 | NUR ---
CLOSING NOTE patient resting in bed, IVF infusing as ordered, breathing is even and unlabored on room air, pain is controlled at this time, all needs were met throughout shift, will endorse report to oncoming nurse, wound vac in place, safety precautions in place, call light within reach.
--- NOTE | 2018-12-06 19:15 | NUR ---
PT WAS RECEIVED IN BED FULLY AWAKE, ALERT AND ORIENTED X4. NO C/O PAIN OR DISCOMFORT AND NO ACUTE DISTRESS NOTED. IV SITES IN LFA AND RFA ARE BOTH INFILTRATED AND BOTH ANGIOCATHS WERE REMOVED INTACT. PRESSURE DRESSINGS WERE APPLIED TO BOTH SITES. WILL RESTART IV LINE AFTER OBTAINING REPORTS ON OTHER PTS ASSIGNED TO THIS RN. ABDOMINAL PORTABLE WOUND VAC NOTED WITH THE DRESSING DRY AND INTACT. NO DRAINAGE NOTED IN THE WOUND VAC AT THIS TIME.
[2018-12-06 20:00] VITALS: BP_SYST 135
--- NOTE | 2018-12-06 20:15 | NUR ---
IV LINE RESTARTED IN LFA WITH ANGIOCATH 22G AFTER ONE ATTEMPT. IV ZYVOX INFUSION WAS RESUMED. PT TOLERATED IV RESTART WELL. FALL AND SAFETY PRECAUTIONS ARE IN PLACE.
[2018-12-06] MEDS: ATORVASTATIN 20 MG TABLET PO SCH (21:00)
[2018-12-06] MEDS: TERAZOSIN HCL 5 MG CAPSULE (HYTRIN) PO SCH (21:20)
--- NOTE | 2018-12-06 21:25 | NUR ---
DILAUDID 1MG WAS GIVEN IV PER PT'S REQUEST FOR C/O 7/10 ABDOMINAL PAIN WITH RELIEF. ABDOMINAL WOUND VAC IS ON WITH NO LEAKAGE NOTED. FALL AND SAFETY PRECAUTIONS ARE IN PLACE. PT DECLINED BED ALARM.
[2018-12-06] MEDS: cefTRIAXone 1 GM in D5W 50 ML IV SCH (22:04)
--- NOTE | 2018-12-06 22:40 | NUR ---
PT INSISTED ON CONNECTING HER TO A REGULAR WOUND VAC BECAUSE HER PORTABLE WOUND VAC HAS NO DRAINAGE COMING OUT OF IT. THE PORTABLE WOUND VAC IS ON AND SUCTIONING. RN EXPLAINED TO PT THAT SURGEON CLEANSED THE WOUND VERY WELL TODAY IN OR AND FOR HER TO WAIT FOR THE WOUND COAT ROOM ATTENDANT TO CHECK THE PORTABLE WOUND VAC IN AM. PT WAS NOT SATISFIED WITH RN'S EXPLANATION AND SHE REQUESTED TO SPEAK WITH THE CHARGE NURSE WHO CAME TO SPEAK WITH PT. PT WAS STILL NOT SATISFIED WITH CHARGE NURSE'S EXPLANATION, BUT INSISTED ON BEING CONNECTED TO THE LARGE WOUND VAC TONIGHT. PT WAS INFORMED THE SURGEON WILL BE CONTACTED FIRST TO GET AN ORDER BEFORE CONNECTING HER TO REGULAR WOUND VAC.
--- NOTE | 2018-12-06 22:48 | NUR ---
Reza Gill spoke to him.
--- NOTE | 2018-12-06 22:55 | NUR ---
SPOKE WITH DR. WINN ABOUT PT'S PORTABLE WOUND VAC NOT HAVING ANY DRAINAGE AND PT INSISTING ON CONNECTING HER TO THE REGULAR WOUND VAC. DR. WINN STATED IT IS NORMAL FOR THE PORTABLE WOUND VAC NOT TO HAVE ANY DRAINAGE BECAUSE HE CLEANSED AND CLOSED THE WOUND IN OR. DR. WINN STATED PT SHOULD WAIT UNTIL AM FOR WOUND SUCCESS COACH TO SPEAK WITH HER ABOUT THE PORTABLE WOUND VAC. PT WAS INFORMED.
[2018-12-06] MEDS: IBUPROFEN 800 MG TABLET PO PRN (23:47)
--- NOTE | 2018-12-06 23:47 | NUR ---
IBUPROFEN 800MG WAS GIVEN PO WITH FOOD PER PT'S REQUEST FOR C/O 10/17 ABDOMINAL PAIN WITH RELIEF. PT ATE TWO SHILPA CRACKERS AND DRANK 1 CUP APPLE JUICE.
[2018-12-06] MEDS ORDERED: IBUPROFEN 800 MG TABLET ONE (23:55)
[2018-12-07] VITALS: BP_SYST 132
--- NOTE | 2018-12-07 00:30 | NUR ---
PT IS SLEEPING WITHOUT ANY DISTRESS NOTED. IVF IS INFUSING WELL IN LFA.
--- NOTE | 2018-12-07 02:30 | NUR ---
PT IS SLEEPING COMFORTABLY IN BED. IVF IS INFUSING WELL IN LFA. CALL LIGHT IS WITH PT AND BED IS IN THE LOWEST AND LOCKED POSITIONS.
[2018-12-07] MEDS: NACL 0.9% 1,000 ML IV SCH ×3 (02:38→22:38)
[2018-12-07] MEDS: LINEZOLID 300 ML IV SCH ×2 (03:33→12:50)
--- NOTE | 2018-12-07 04:10 | NUR ---
PT CALLED RN TO HER ROOM AND STATED SHE ACCIDENTALLY DROPPED THE PORTABLE WOUND VAC WHEN SHE WENT TO THE BATHROOM AND THE WOUND VAC IS VIBRATING CONTINUOUSLY. PT WANTS THE WOUND VAC ON ALL NIGHT WITH THE VIBRATING SOUNDS. NO DRAINAGE NOTED IN THE WOUND VAC YET.
--- NOTE | 2018-12-07 05:30 | NUR ---
PT IS SLEEPING COMFORTABLY IN BED. IVF IS INFUSING WELL IN LFA. FALL AND SAFETY PRECAUTIONS ARE IN PLACE. ABDOMINAL WOUND VAC IS ALSO IN PLACE.
--- NOTE | 2018-12-07 06:50 | NUR ---
PT IS AWAKE AND RESTING COMFORTABLY IN BED. ALL PT'S NEEDS WERE ATTENDED TO. NO FALL OR INJURY NOTED THIS SHIFT. IVF IS INFUSING WELL IN LFA. ABDOMINAL WOUND VAC IS INTACT WITH NO DRAINAGE SEEN. PT STATES IT STILL VIBRATES. NO WARNING INDICATOR LIGHT SEEN BY RN. FALL AND SAFETY PRECAUTIONS ARE IN PLACE. WILL ENDORSE TO DAY SHIFT NURSE.
[2018-12-07 08:03] VITALS: BP_SYST 149
--- NOTE | 2018-12-07 08:05 | NUR ---
OPENING NOTE patient received resting in bed A&O x4, patient denies any acute distress or pain at this time, breathing is even and unlabored on room air, IVF infusing as ordered, educated patient on plan of care and call light system, wound vac in place, safety precautions in place, call light within reach.
[2018-12-07] MEDS: FERROUS SULFATE 300 MG/5 ML UDC PO SCH ×2 (09:54→17:07)
[2018-12-07] MEDS: ASCORBIC ACID 500 MG TABLET PO SCH (09:55)
[2018-12-07] MEDS: CARVEDILOL 25 MG TABLET (COREG) PO SCH ×2 (09:55→17:06)
[2018-12-07] MEDS: FAMOTIDINE 20 MG TABLET PO SCH ×2 (09:55→20:42)
[2018-12-07] MEDS: FOLIC ACID 1 MG TABLET PO SCH (09:55)
[2018-12-07] MEDS: LOSARTAN POTASSIUM 50 MG TABLET (COZAAR) PO SCH (09:56)
[2018-12-07] MEDS: buPROPion HCL 150 MG XL TAB PO SCH (09:56)
[2018-12-07] MEDS: DOCUSATE SODIUM 100 MG CAPSULE PO SCH (09:56)
--- NOTE | 2018-12-07 10:17 | NUR ---
NOTES patient is resting in bed talking on phone, patient denies any acute distress or pain, IVF infusing as ordered, wound vac intact, will continue to monitor, safety precautions in place, call light within reach.
[2018-12-07 11:52] LABS: BASOPHILS % (AUTO) 0.6 % (0.0-2.0); EOSINOPHILS % (AUTO) 0.1 % (0.0-4.0); HEMATOCRIT 38.2 % (36-48); HEMOGLOBIN 12.1 g/dL (12.0-16.0); LYMPHOCYTES # (AUTO) 1.2 K/uL (1.0-5.5); LYMPHOCYTES % (AUTO) 15.3 % (20.5-51.5); MEAN CORPUSCULAR HEMOGLOBIN 28 pg (27-31); MEAN CORPUSCULAR HGB CONC 32 % (32-36); MEAN CORPUSCULAR VOLUME 87 fL (79.0-98.0); MONOCYTES # (AUTO) 0.5 K/uL (0.0-1.0); MONOCYTES % (AUTO) 6.3 % (1.7-9.3); NEUTROPHILS # (AUTO) 6.1 K/uL (1.8-7.7); NEUTROPHILS % (AUTO) 77.7 % (40.0-70.0); PLATELET COUNT (AUTO) 279 K/uL (130-430); RED BLOOD CELL COUNT(AUTO) 4.39 MIL/uL (4.2-6.2); RED CELL DISTRIBUTION WIDTH 16.6 % (9.0-15.0); WHITE BLOOD COUNT (AUTO) 7.9 K/uL (4.8-10.8)
--- NOTE | 2018-12-07 12:20 | NUR ---
NOTES patient is resting in bed eating lunch at this time, patient denies any acute distress or pain at this time, breathing is even and unlabored on room air, IVF infusing as ordered, will continue to monitor, safety precautions in place, call light within reach.
[2018-12-07 12:33] VITALS: BP_SYST 143
--- NOTE | 2018-12-07 14:25 | NUR ---
NOTES patient resting in bed talking on phone, patient denies any acute distress or pain, breathing is even and unlabored, will continue to monitor, safety precautions in place, call light within reach.
--- NOTE | 2018-12-07 16:35 | NUR ---
NOTES patient resting in bed with eyes closed, no acute distress or pain noted, IVF infusing as ordered, will continue to monitor.
[2018-12-07 16:40] VITALS: BP_SYST 158
[2018-12-07] MEDS: cefTRIAXone 1 GM in D5W 50 ML IV SCH (17:06)
[2018-12-07] MEDS: HYDROmorphone 1 MG INJ. 1 MG/ML AMPUL IVP PRN (17:56)
--- NOTE | 2018-12-07 19:05 | NUR ---
CLOSING NOTE patient resting in bed, IVF infusing as ordered, breathing is even and unlabored on room air, pain is controlled at this time, all needs were met throughout shift, will endorse report to oncoming nurse, all needs were met throughout shift, wound vac in place, safety precautions in place, call light within reach.
--- NOTE | 2018-12-07 19:20 | NUR ---
BEDSIDE REPORT WAS OBTAINED FROM DAY SHIFT NURSE. PT IS LYING IN BED FULLY AWAKE, ALERT AND ORIENTED X4. NO C/O PAIN OR DISCOMFORT AND NO ACUTE DISTRESS NOTED AT THIS TIME. IVF OF NS IS INFUSING WELL IN LFA AT 100ML/HR WITHOUT ANY SIGNS OF INFILTRATION. ABDOMINAL PORTABLE WOUND VAC NOTED WITH THE DRESSING DRY AND INTACT. SMALL AMOUNT OF BROWNISH DRAINAGE NOTED IN THE WOUND VAC'S TUBING AND NO WARNING INDICATOR LIGHT NOTED ON THE WOUND VAC. FALL AND SAFETY PRECAUTIONS ARE IN PLACE.
[2018-12-07 20:00] VITALS: BP_SYST 129
[2018-12-07] MEDS: IBUPROFEN 800 MG TABLET PO PRN (20:41)
--- NOTE | 2018-12-07 20:41 | NUR ---
IBUPROFEN 800MG WAS GIVEN PO WITH FOOD PER PT'S REQUEST FOR C/O 10/17 ABDOMINAL PAIN WITH RELIEF. FALL AND SAFETY PRECAUTIONS ARE IN PLACE.
[2018-12-07] MEDS: TERAZOSIN HCL 5 MG CAPSULE (HYTRIN) PO SCH (20:42)
[2018-12-07] MEDS: ATORVASTATIN 20 MG TABLET PO SCH (20:42)
--- NOTE | 2018-12-07 23:00 | NUR ---
PT IS SLEEPING COMFORTABLY IN BED. IVF IS INFUSING WELL IN LFA. FALL AND SAFETY PRECAUTIONS ARE IN PLACE. ABDOMINAL WOUND VAC IS INTACT.
[2018-12-08 00:20] VITALS: BP_SYST 140
[2018-12-08] MEDS: NACL 0.9% 1,000 ML IV SCH ×2 (00:21→20:52)
[2018-12-08] MEDS: LINEZOLID 300 ML IV SCH ×2 (00:24→12:22)
--- NOTE | 2018-12-08 00:30 | NUR ---
PT IS RESTING QUIETLY IN BED. NO C/O PAIN OR DISCOMFORT. ABDOMINAL WOUND VAC IS INTACT AND FUNCTIONING WELL WITH SMALL AMOUNT OF BROWNISH FLUID NOTED IN THE TUBING ONLY.
--- NOTE | 2018-12-08 02:28 | NUR ---
PT CONTINUES TO SLEEP COMFORTABLY IN BED. IVF IS INFUSING WELL IN LFA. CALL LIGHT IS WITH PT AND BED IS IN THE LOWEST AND LOCKED POSITIONS.
--- NOTE | 2018-12-08 04:48 | NUR ---
PT IS RESTING WITHOUT ANY RESPIRATORY DISTRESS NOTED. IVF IS INFUSING WELL IN LFA. FALL AND SAFETY PRECAUTIONS ARE IN PLACE.
--- NOTE | 2018-12-08 06:50 | NUR ---
PT IS AWAKE AND RESTING COMFORTABLY IN BED. ALL PT'S NEEDS WERE ATTENDED TO. NO FALL OR INJURY NOTED THIS SHIFT. IVF IS INFUSING WELL IN LFA. ABDOMINAL WOUND VAC IS INTACT WITH SMALL AMOUNT OF BROWNISH LIQUID. NO SIGNS OF LEAKAGE NOTED. FALL AND SAFETY PRECAUTIONS ARE IN PLACE. WILL ENDORSE TO DAY SHIFT NURSE.
[2018-12-08 07:55] VITALS: BP_SYST 133
--- NOTE | 2018-12-08 08:00 | NUR ---
Opening notes, Received pt in bed, pt is aaox4, denies surgical wound pain this time, no sob, no resp distress. pt is afebrile. iv fluids infusing well. no s/s of infiltration and swelling on iv site. safety precaution in place. call light in reach. bed in low position. encouraged pt to call for assist and pain meds. will cont to monitor.
[2018-12-08] MEDS: ASCORBIC ACID 500 MG TABLET PO SCH (08:26)
[2018-12-08] MEDS: DOCUSATE SODIUM 100 MG CAPSULE PO SCH (08:28)
[2018-12-08] MEDS: FAMOTIDINE 20 MG TABLET PO SCH ×2 (08:29→20:57)
[2018-12-08] MEDS: FOLIC ACID 1 MG TABLET PO SCH (08:29)
[2018-12-08] MEDS: LOSARTAN POTASSIUM 50 MG TABLET (COZAAR) PO SCH (08:29)
[2018-12-08] MEDS: buPROPion HCL 150 MG XL TAB PO SCH (08:29)
[2018-12-08] MEDS: FERROUS SULFATE 300 MG/5 ML UDC PO SCH ×2 (08:30→17:32)
[2018-12-08] MEDS: CARVEDILOL 25 MG TABLET (COREG) PO SCH ×2 (08:30→17:32)
--- NOTE | 2018-12-08 10:14 | NUR ---
pt in bed, eyes closed, appears sleeping and comfortable, call light in reach. bed in low position. will cont to monitor.
[2018-12-08] MEDS ORDERED: LR 1,000 ML IV SCH (10:20)
[2018-12-08] MEDS ORDERED: MEPERIDINE HCL/PF 25 MG/ML DISP.SYRIN IVP PRN (10:30)
[2018-12-08] MEDS ORDERED: HYDROmorphone 1 MG INJ. 1 MG/ML AMPUL IVP PRN (10:30)
[2018-12-08] MEDS ORDERED: HYDROmorphone 2 MG/ML VIAL IVP PRN ×2 (10:30)
[2018-12-08] MEDS: HYDROmorphone 1 MG INJ. 1 MG/ML AMPUL IVP PRN (12:34)
--- NOTE | 2018-12-08 12:35 | NUR ---
pt given pain med for surgical wound pain of 7/10.
[2018-12-08 12:46] VITALS: BP_SYST 141
[2018-12-08 16:02] VITALS: BP_SYST 129
[2018-12-08] MEDS: cefTRIAXone 1 GM in D5W 50 ML IV SCH (17:22)
--- NOTE | 2018-12-08 18:00 | NUR ---
told patient that roro, wound care nurse, paged the surgeon to make aware of the full canister alert on the prevena system and we are waiting for call back from md.
--- NOTE | 2018-12-08 18:15 | NUR ---
closing notes, pt has been stable, all meds given. given pain med x1, also have issue with the portable wound vacc machine, it was giving a "full canister alert". informed roro , wound care nurse, and roor paged dr garrison for his input. will inform the night nurse.
--- NOTE | 2018-12-08 19:20 | NUR ---
BEDSIDE REPORT WAS RECEIVED FROM DAY SHIFT NURSE. PT IS FULLY AWAKE, ALERT AND ORIENTED X4. NO C/O PAIN OR DISCOMFORT AND NO ACUTE DISTRESS NOTED. IVF OF NS IS INFUSING WELL IN LFA AT 100ML/HR WITHOUT ANY SIGNS OF INFILTRATION. ABDOMINAL PORTABLE WOUND VAC NOTED WITH THE DRESSING DRY AND INTACT. SMALL AMOUNT OF BROWNISH RED DRAINAGE NOTED IN THE WOUND VAC AND NO WARNING INDICATOR LIGHT SEEN. FALL AND SAFETY PRECAUTIONS ARE IN PLACE.
--- NOTE | 2018-12-08 19:21 | NUR ---
patient refused to be connected to the regular wound vacc machine on prevena settings due to fear for further contamination of the tubings of the prevena machine even it is covered with sterile gauze. pt was reconnected back to the prevena machine. pt stated that she will deal with the beeping noise the machine is making. dr garrison made aware.
[2018-12-08 20:00] VITALS: BP_SYST 130
[2018-12-08] MEDS: TERAZOSIN HCL 5 MG CAPSULE (HYTRIN) PO SCH (20:58)
[2018-12-08] MEDS: ATORVASTATIN 20 MG TABLET PO SCH (20:58)
--- NOTE | 2018-12-08 21:45 | NUR ---
PT WAS RECONNECTED TO REGULAR WOUND VAC MACHINE BY CHARGE NURSE PER PT'S REQUEST WHILE RN WAS BUSY WITH ANOTHER PT. THE SETTING IS AT 125MM/HG.
[2018-12-08 23:30] VITALS: BP_SYST 125
--- NOTE | 2018-12-08 23:30 | NUR ---
PT C/O PAIN AT THE IV SITE IN LFA AND REQUESTED ANOTHER IV LINE. ANGIOCATH IN LFA WAS REMOVED INTACT AND PRESSURE DRESSING APPLIED TO THE SITE. IV LINE WAS RESTARTED IN RFA WITH ANGIOCATH 22G AFTER TWO ATTEMPTS. PT TOLERATED IV RESTART WELL. FALL AND SAFETY PRECAUTIONS ARE IN PLACE.
[2018-12-09] MEDS: LINEZOLID 300 ML IV SCH ×2 (01:01→12:11)
[2018-12-09] MEDS: HYDROmorphone 1 MG INJ. 1 MG/ML AMPUL IVP PRN (01:09)
--- NOTE | 2018-12-09 01:09 | NUR ---
DILAUDID 1MG WAS GIVEN IV PER PT'S REQUEST FOR C/O 7/10 ABDOMINAL PAIN. REGULAR WOUND VAC TO ABDOMINAL WOUND IS ON WITH NO LEAKAGE NOTED. SMALL AMOUNT OF BROWNISH RED DRAINAGE NOTED IN THE TUBING AND WOUND VAC RESERVOIR. FALL AND SAFETY PRECAUTIONS ARE IN PLACE.
--- NOTE | 2018-12-09 03:00 | NUR ---
PT IS SLEEPING COMFORTABLY IN BED. IVF IS INFUSING WELL IN LFA. FALL AND SAFETY PRECAUTIONS ARE IN PLACE. REGULAR WOUND VAC TO ABDOMEN IS ON AND NO LEAKAGE NOTED.
[2018-12-09] MEDS: NACL 0.9% 1,000 ML IV SCH (04:38)
--- NOTE | 2018-12-09 05:00 | NUR ---
IVF IS INFUSING WELL IN RFA. NO ACUTE DISTRESS NOTED AT THIS TIME.
--- NOTE | 2018-12-09 06:50 | NUR ---
PT IS RESTING COMFORTABLY IN BED. ALL PT'S NEEDS WERE ATTENDED TO. NO FALL OR INJURY NOTED THIS SHIFT. IVF IS INFUSING WELL IN RFA WITHOUT ANY SIGNS OF INFILTRATION. FALL AND SAFETY PRECAUTIONS ARE IN PLACE. ABDOMINAL WOUND VAC IS FUNCTIONING WITHOUT ANY LEAKAGE NOTED. WILL ENDORSE TO DAY SHIFT NURSE.
[2018-12-09 07:52] VITALS: BP_SYST 171
[2018-12-09] MEDS: FERROUS SULFATE 300 MG/5 ML UDC PO SCH (08:43)
[2018-12-09] MEDS: DOCUSATE SODIUM 100 MG CAPSULE PO SCH (08:44)
[2018-12-09] MEDS: buPROPion HCL 150 MG XL TAB PO SCH (08:44)
[2018-12-09] MEDS: LOSARTAN POTASSIUM 50 MG TABLET (COZAAR) PO SCH (08:45)
[2018-12-09] MEDS: ASCORBIC ACID 500 MG TABLET PO SCH (08:45)
[2018-12-09] MEDS: FAMOTIDINE 20 MG TABLET PO SCH (08:45)
[2018-12-09] MEDS: FOLIC ACID 1 MG TABLET PO SCH (08:45)
[2018-12-09] MEDS: CARVEDILOL 25 MG TABLET (COREG) PO SCH (08:46)
[2018-12-09] MEDS ORDERED: CIPR-211 PO (14:30)
[2018-12-09] MEDS ORDERED: DOXY100T2 PO (14:31)
[2018-12-09 14:41] VITALS: BP_SYST 157
--- NOTE | 2018-12-09 15:33 | NUR ---
PATIENT SEEN BY LUCAS SANTOS. REPLACED THE CANISTER AND DISCUSSED WITH PT HOW TO FIX MACHINE IF IT ALARMS OR NEEDS BATTERY CHANGE. GAVE PT CALLING CARD IN CASE PT NEEDS TO TALK TO HIM. Addendum: 12/09/18 at 1729 by David Reyes RN rep hearn replaced the old canister with a new one. the machine was working well.
--- NOTE | 2018-12-09 17:00 | NUR ---
D/C Patient Patient given medication reconciliation form and D/C instructions. Exit Care provided. Patient verbalized understanding. MD discussed with patient the results and treatment provided. Ambulatory with steady gait for discharge to home. Patient in stable condition, ID band removed. IV catheter removed, intact and dressing applied, no active bleeding. Rx of CIPRO AND DOXYCYCLINE given. Patient educated on pain management. All belongings sent with patient.
== END 2018-12-09 16:40 | disposition home health service (06) | DRG 902 ==
LOC: SED 14:44 → SMU 17:50 → UNDODISIN 12-06 22:49
PROVIDERS: ADMIT Internal Medicine Hospice and Palliative Medicine; ATTEND Internal Medicine Hospice and Palliative Medicine
PROC: 0JB80ZZ Excision of Abdomen Subcutaneous Tissue and Fascia, Open Approach (ICD-10-PCS; principal; 2018-12-06 14:00)
DX: T81.31XA Disruption of external operation (surgical) wound, not elsewhere classified, initial encounter (principal); L03.311 Cellulitis of abdominal wall; T81.41XA Infection following a procedure, superficial incisional surgical site, initial encounter; Z68.42 Body mass index [BMI] 45.0-49.9, adult; E11.9 Type 2 diabetes mellitus without complications; E66.01 Morbid (severe) obesity due to excess calories; E78.5 Hyperlipidemia, unspecified; F20.9 Schizophrenia, unspecified; Y83.8 Other surgical procedures as the cause of abnormal reaction of the patient, or of later complication, without mention of misadventure at the time of the procedure; I10 Essential (primary) hypertension; J45.909 Unspecified asthma, uncomplicated; K21.9 Gastro-esophageal reflux disease without esophagitis; Z88.0 Allergy status to penicillin; Z88.1 Allergy status to other antibiotic agents; Y92.89 Other specified places as the place of occurrence of the external cause; Z98.84 Bariatric surgery status
CPT/HCPCS: 36415; 74018; 80053; 81000-TC; 83605; 85025; 85610-TC; 87040-TC; 87070-TC; 87081; 88304; 88305; 94760; 96365; 96375; 99285; J0696; J1100; J1170; J1200; J1885; J2020; J2250; J2270; J2405; J2704; J3010; J3370; J3490; J7030; J7042; J7050; J7060; J7120

== ENCOUNTER 2021-05-09 14:03 | Emergency (ER) | payer OTHER ==
[~2021-05-09] VITALS: Ht 162.6 cm; Wt 111.1 kg
[~2021-05-09 14:03] MED LIST changes: -ALBMDI INH; -AMLO5TAB4 PO; +BENZ1TAB76 PO; -BUPR-120 PO; +CARV25TA55 PO; -CHOL500052 PO; +CIPR500T5 PO; -COG1 PO; -DEXA; +DOXY100T2 PO; +EMPA10TA PO; +FAMO-132 PO; +FER300L PO; -FERR-57 PO; +FOLI-43 PO; -FURO-150 PO; +HYDR-4274 PO; +HYT1 PO; +LORA-259 PO; -LURA60TA PO; +LURA80TA PO; -MULT-1117 PO; -OMEG100T PO; +ROSU20TA2 PO; +TELM80TA2 PO; -VALS80TA2 PO
--- NOTE | 2021-05-09 14:11 | NUR ---
Patient to ER bed 02 to gown for evaluation. Side rails up.
[2021-05-09 14:12] VITALS: BP_SYST 121
--- NOTE | 2021-05-09 14:49 | NUR ---
CALM, ALERT, RESP UNLABORED, SKIN WARM AND DRY. C/O BLE PAIN AND SHOULDER PAIN, RECENT INJURY WHILE AT WORK. PT DENIES INJURY. LT FOOT INJURY FROM CART RUNNING OVER HER LIMB, CIRCULATION AND SENSATION INTACT
--- NOTE | 2021-05-09 14:54 | NUR ---
DR GREEN IN TO ASSESS
[2021-05-09] MEDS ORDERED: ACETAMINOPHEN 500 MG TABLET PO ONE (15:15)
[2021-05-09] MEDS ORDERED: TRAM50TA PO (15:21)
[2021-05-09 15:56] VITALS: BP_SYST 125
--- NOTE | 2021-05-09 15:57 | NUR ---
Patient given written and verbal discharge instructions and verbalizes understanding. ER MD discussed with patient the results and treatment provided. Patient in stable condition. ID arm band removed. Rx of TRAMADOL given. Patient educated on pain management and to follow up with PMD. Pain Scale 0/10 Opportunity for questions provided and answered. Medication side effect fact sheet provided.
== END 2021-05-09 15:57 | disposition home or self-care (01) ==
LOC: SED 14:03
DX: S96.911A Strain of unspecified muscle and tendon at ankle and foot level, right foot, initial encounter (principal); S96.912A Strain of unspecified muscle and tendon at ankle and foot level, left foot, initial encounter; M75.52 Bursitis of left shoulder; M75.51 Bursitis of right shoulder; M77.32 Calcaneal spur, left foot; M77.31 Calcaneal spur, right foot; E66.01 Morbid (severe) obesity due to excess calories; I10 Essential (primary) hypertension; K21.9 Gastro-esophageal reflux disease without esophagitis; J45.909 Unspecified asthma, uncomplicated; Z68.41 Body mass index [BMI] 40.0-44.9, adult; Z88.0 Allergy status to penicillin; Z88.1 Allergy status to other antibiotic agents; Z79.899 Other long term (current) drug therapy; X50.9XXA Other and unspecified overexertion or strenuous movements or postures, initial encounter; Y93.89 Activity, other specified; Y92.89 Other specified places as the place of occurrence of the external cause; Y99.8 Other external cause status
CPT/HCPCS: 73620; 82962; 99284

== ENCOUNTER 2021-07-10 15:29 | Emergency (ER) | payer OTHER ==
[~2021-07-10] VITALS: Ht 157.5 cm; Wt 113.4 kg
[~2021-07-10 15:29] MED LIST changes: +TRAM50TA PO
[2021-07-10 16:07] VITALS: BP_SYST 156
--- NOTE | 2021-07-10 16:15 | NUR ---
Patient brought in from home, AO x 4 ambulatory complaining of left ear pain x 1 week, throbbing sharp, radiating down throat and teeth. Patient reports taking tylenol and ibuprofen with no relief. Denies any hearing loss, discharge, hx of htn, dm and depression. Pain 04/19
--- NOTE | 2021-07-10 16:15 | NUR ---
Placed in room 07 . Placed on bus driver/monitor, blood pressure machine and pulse oximeter. To gown for exam. Side rails up. Report given to myself, rn
--- NOTE | 2021-07-10 16:18 | NUR ---
Dr. Lewis in [facility] examining patient.
[2021-07-10 17:38] LABS: BASOPHILS % (AUTO) 0.7 % (0.0-2.0); EOSINOPHILS # (AUTO) 0.1 K/uL (0.0-0.4); EOSINOPHILS % (AUTO) 2.2 % (0.0-4.0); HEMATOCRIT 43.7 % (36-48); HEMOGLOBIN 14.6 g/dL (12.0-16.0); LYMPHOCYTES # (AUTO) 1.4 K/uL (1.0-5.5); LYMPHOCYTES % (AUTO) 26.6 % (20.5-51.5); MEAN CORPUSCULAR HEMOGLOBIN 29 pg (27-31); MEAN CORPUSCULAR HGB CONC 33 % (32-36); MEAN CORPUSCULAR VOLUME 86 fL (79.0-98.0); MONOCYTES # (AUTO) 0.4 K/uL (0.0-1.0); MONOCYTES % (AUTO) 7.2 % (1.7-9.3); NEUTROPHILS # (AUTO) 3.5 K/uL (1.8-7.7); NEUTROPHILS % (AUTO) 63.3 % (40.0-70.0); PLATELET COUNT (AUTO) 230 K/uL (130-430); RED BLOOD CELL COUNT(AUTO) 5.07 MIL/uL (4.2-6.2); RED CELL DISTRIBUTION WIDTH 14.3 % (9.0-15.0); WHITE BLOOD COUNT (AUTO) 5.5 K/uL (4.8-10.8)
[2021-07-10 17:40] LABS: STREPTOCOCCUS A SCREEN (RAPID) NEGATIVE (NEGATIVE)
[2021-07-10 17:51] LABS: CALCIUM 9.2 mg/dL (8.4-11.0); CREATININE 0.86 mg/dL (0.55-1.30); POTASSIUM 3.9 mmol/L (3.5-5.1)
[2021-07-10] MEDS ORDERED: AMOXICILLIN/CLAVULANATE POTASSIUM 875 MG TABLET PO ONE (18:45)
[2021-07-10] MEDS ORDERED: IBUPROFEN 800 MG TABLET PO ONE (18:45)
[2021-07-10] MEDS ORDERED: AMOX-426 PO (18:45)
[2021-07-10] MEDS ORDERED: ACETAMINOPHEN 500 MG TABLET PO ONE (18:45)
[2021-07-10] MEDS ORDERED: OXYIR5 PO (18:46)
[2021-07-10 19:00] VITALS: BP_SYST 156
--- NOTE | 2021-07-10 19:00 | NUR ---
Patient given written and verbal discharge instructions and verbalizes understanding. ER MD discussed with patient the results and treatment provided. Patient in stable condition. ID arm band removed. Rx of oxycodone and augmentin given. Patient educated on pain management and to follow up with PMD. Pain Scale 0/10 Opportunity for questions provided and answered. Medication side effect fact sheet provided.
== END 2021-07-10 19:00 | disposition home or self-care (01) ==
LOC: SED 15:29
DX: H66.92 Otitis media, unspecified, left ear (principal); I10 Essential (primary) hypertension; J45.909 Unspecified asthma, uncomplicated; K21.9 Gastro-esophageal reflux disease without esophagitis; Z88.1 Allergy status to other antibiotic agents; Z79.899 Other long term (current) drug therapy; Z20.822 Contact with and (suspected) exposure to COVID-19
CPT/HCPCS: 36415; 70486-TC; 76376; 80048; 85025; 86308-TC; 86403; 86710; 87081; 99284

== ENCOUNTER 2022-01-21 17:38 | Emergency (ER) | payer OTHER ==
[~2022-01-21] VITALS: Ht 157.5 cm; Wt 117.9 kg
[~2022-01-21 17:38] MED LIST changes: +AMOX-426 PO; -LURA80TA PO; +LURA80TA2 PO; +OXYIR5 PO
[2022-01-21 17:46] VITALS: BP_SYST 144
--- NOTE | 2022-01-21 17:50 | NUR ---
Pt triaged and placed in waiting room pending MD colmenares.
--- NOTE | 2022-01-21 21:49 | NUR ---
Patient to ER H1 to gown for evaluation. Side rails up. Report given to EMILY WHEELER
--- NOTE | 2022-01-21 21:54 | NUR ---
DR. GRAY EXAMINING PATIENT
[2022-01-21] MEDS ORDERED: NAPR-1172 PO (22:01)
--- NOTE | 2022-01-21 22:01 | NUR ---
PT came form home with c/o of pain 8/10 to the right elbow, knee, and foot. Pt was walking upstairs to her apartment when she slipped at the top and slide down the stairs. She wagner LOC and reports no dizziness. A&O X 4, ambulatory and follows commands. Safety precautions are in place.
[2022-01-21 22:15] VITALS: BP_SYST 148
--- NOTE | 2022-01-21 22:15 | NUR ---
Patient given written and verbal discharge instructions and verbalizes understanding. ER Dr. Zabala discussed with patient the results and treatment provided. Patient in stable condition. ID arm band removed. IV catheter removed intact and dressing applied, no active bleeding. Rx of naproxen given. Patient educated on pain management and to follow up with PMD. Pain Scale 3. Opportunity for questions provided and answered. Medication side effect fact sheet provided.
[2022-01-28] MEDS ORDERED: KETO10TA2 PO (06:35)
== END 2022-01-21 22:15 | disposition home or self-care (01) ==
LOC: SED 17:38
DX: S83.91XA Sprain of unspecified site of right knee, initial encounter (principal); S53.401A Unspecified sprain of right elbow, initial encounter; S93.601A Unspecified sprain of right foot, initial encounter; I10 Essential (primary) hypertension; J45.909 Unspecified asthma, uncomplicated; K21.9 Gastro-esophageal reflux disease without esophagitis; Z88.1 Allergy status to other antibiotic agents; W10.8XXA Fall (on) (from) other stairs and steps, initial encounter; Y93.89 Activity, other specified; Y92.89 Other specified places as the place of occurrence of the external cause; Y99.8 Other external cause status
CPT/HCPCS: 73560-TC; 99284